=== PATIENT | female | born 1945 | race Asian ===

== ENCOUNTER 2016-08-21 19:26 | Inpatient (IN) | payer MEDICARE, MEDICAID ==
--- NOTE | 2016-08-21 19:29 | ED Physician Chart ---
Chief Complaint/HPI - Patient Information Date Seen:: 08/21/16 Time Seen:: 19:28 Chief Complaint:: knee pain History of Present Illness:: 71-year-old female brought in by ambulance with acute, moderate, nonradiating, right knee pain that happened about 30 minutes prior to arrival to the ER when she tripped while playing basketball and landed on her right knee. Has associated swelling and ecchymosis of the right knee. Historian:: Patient, EMS Review:: Nurse's Note Reviewed, EMS run form Reviewed Review of Systems - Review of Systems Other: Complete system review otherwise unremarkable except as noted in HPI. Past Medical History - Past Medical History Past Medical History: Other (multiple psychiatric issues) Family History: None Social History: Non Smoker, No Alcohol, No Drug Use, Care Facility Surgical History: None Psychiatricy History: Schizophrenia, Other (multiple psychiatric issues) Medication: Reviewed Family Medical History - Family Member Mother History Unknown: Yes Physical Exam - Physical Examination Other:: INITIAL VITAL SIGNS: Reviewed by me GENERAL: Alert and interactive. No acute distress HEAD: Head is normocephalic and atraumatic EYES: EOMI. . No scleral icterus. No conjunctival injection ENT: Moist mucous membranes. NECK: Supple. No masses. Full range of motion RESPIRATORY: No tachypnea. Clear breath sounds bilaterally. No wheezing, rales, or rhonchi CV: Regular rate and rhythm. No murmurs, rubs, or gallops ABDOMEN: Soft, non-distended, non-tender. No guarding. No rebound. No masses. EXTREMITIES: Right knee is edematous and ecchymotic. Range of motion is limited due to pain. SKIN: Warm and dry. No obvious rashes. NEUROLOGIC: Alert and oriented. Face is symmetric. Speech is normal. Moves all extremities equally. Motor and sensory distally intact. Labs/Radiology/EKG Results - Radiology Results Results: X-ray right knee 3 views was interpreted independently and contemporaneously by Mateo Riggs MD: Severely displaced patellar fracture No acute dislocations No soft tissue foreign bodies Overall impression: Severely displaced patellar fracture Assessment Splint Care: Splint applied Post Procedure/Splint Exam: No Active Bleeding, Full Range of Motion, Neuro/ Vascular Exam Comments:: Right knee immobilizer splint placed Splint Assessment: Neurovascularly intact post splint placement with good fit. ED Septic Shock - . Is Septic Shock (SBP<90, OR Lactate>4 mmol\L) present?: No Reassessment (Disposition) - Reassessment Reassessment:: This patient has a severely displaced patellar fracture. She will need pain management and surgery to correct this. We did place knee immobilizer here in the ER. Discussed the case with admitting physician who will admit the patient for further workup and treatment. Reassessment Condition:: Improved - Diagnosis Diagnosis:: Severely displaced right patellar fracture, acute, first visit - Patient Disposition Discharge/Transfer:: Acute Care w[facility]in [facility] Admitting Medical Physician:: Lenny Huaser Time:: 21:13 Condition at Disposition:: Stable ED Discharge Plan - Patient Disposition Admit/Discharge/Transfer: Acute Care w/in [facility]
[2016-08-21] MEDS ORDERED: Polyvinyl Alcohol Ophth Soln 15 mL Bottle EACH EYE PRN (21:31)
[2016-08-21] MEDS ORDERED: Magnesium Hydroxide (MOM) 30 mL UDC PO PRN (21:31)
[2016-08-21 21:33] LABS: % BASOPHILS 0.7 % (0.0-2.0); % EOSINOPHILS 2.5 % (0.0-5.0); % LYMPHOCYTES 21.2 % (20.0-50.0); % MONOCYTES 6.1 % (2.0-10.0); % NEUTROPHILS 69.5 % (40.0-80.0); HEMATOCRIT 34.4 % (35.0-45.0); HEMOGLOBIN 11.6 gm/dL (11.7-16.1); MEAN CELL VOLUME 90.7 fl (81-100); MEAN CORPUSCULAR HEMOGLOBIN 30.6 pg (27.0-31.0); MEAN CORPUSCULAR HGB CONC 33.7 pg (28.0-36.0); MEAN PLATELET VOLUME 9.3 fl; PLATELET COUNT 164 Th/cmm (150-400); RED BLOOD COUNT 3.79 Mil/cmm (3.80-5.20); RED CELL DISTRIBUTION WIDTH 13.4 % (11.5-20.0); WHITE BLOOD COUNT 7.2 Th/cmm (4.8-10.8)
[2016-08-21] MEDS ORDERED: Ipratropium Neb 0.5 mg/2.5 mL UD HHN PRN (21:35)
[2016-08-21] MEDS ORDERED: Albuterol Nebulizer 2.5mg/3mL HHN PRN (21:35)
[2016-08-21 21:39] LABS: PROTHROMBIN TIME (TEST) 8.9 SECONDS (9.5-11.5)
[2016-08-21 21:41] LABS: INR 0.9 (0.5-1.4)
[2016-08-21 21:43] LABS: ALB/GLOB RATIO 1.3 (1.0-1.8); ALKALINE PHOSPHATASE 68 U/L (34-104); ANION GAP 5.6 (7.0-16.0); BILIRUBIN,TOTAL 0.3 mg/dL (0.3-1.0); BUN - UREA NITROGEN 32 mg/dL (7-25); CALCIUM SERUM 9.5 mg/dL (8.6-10.3); CARBON DIOXIDE 29.9 mEq/L (21.0-31.0); CHLORIDE 101 mEq/L (98-107); CREATININE - SERUM 0.8 mg/dL (0.6-1.2); GLUCOSE 263 mg/dL (70-105); POTASSIUM SERUM 4.5 mEq/L (3.5-5.1); SGOT 17 U/L (13-39); SGPT/ALT 15 U/L (7-52); SODIUM SERUM 132 mEq/L (136-145)
[2016-08-22 02:12] VITALS: BP 135/70
[2016-08-22] MEDS: Hydrocodone/APAP 5mg/325mg Tab PO PRN ×3 (04:06→16:38)
[2016-08-22 06:01] LABS: PROTHROMBIN TIME (TEST) 8.9 SECONDS (9.5-11.5)
[2016-08-22 06:06] LABS: INR 0.9 (0.5-1.4)
[2016-08-22 06:38] LABS: % BASOPHILS 0.4 % (0.0-2.0); % EOSINOPHILS 2.8 % (0.0-5.0); % LYMPHOCYTES 16.6 % (20.0-50.0); % MONOCYTES 6.7 % (2.0-10.0); % NEUTROPHILS 73.5 % (40.0-80.0); HEMATOCRIT 34.1 % (35.0-45.0); HEMOGLOBIN 11.7 gm/dL (11.7-16.1); MEAN CELL VOLUME 90.2 fl (81-100); MEAN CORPUSCULAR HEMOGLOBIN 30.8 pg (27.0-31.0); MEAN CORPUSCULAR HGB CONC 34.2 pg (28.0-36.0); NEUTROPHILE ABSOLUTE 5.3 Th/cmm (1.8-8.0); PLATELET COUNT 170 Th/cmm (150-400); RED BLOOD COUNT 3.78 Mil/cmm (3.80-5.20); RED CELL DISTRIBUTION WIDTH 13.6 % (11.5-20.0); WHITE BLOOD COUNT 7.2 Th/cmm (4.8-10.8)
[2016-08-22] MEDS: Levothyroxine 0.075 Mg Tab PO SCH (06:41)
[2016-08-22] MEDS: INSULIN ASPART, RECOMBINANT 100 UNITS/ML SUBQ SCH ×4 (06:44→22:08)
[2016-08-22 06:48] LABS: TSH 1.24 uIU/ml (0.34-5.60)
[2016-08-22] MEDS ORDERED: ZINC PO SCH (09:00)
[2016-08-22] MEDS ORDERED: [UNRECOGNIZED DRUG - OTHER] PO SCH (09:00)
[2016-08-22] MEDS ORDERED: D3 PO SCH (09:00)
[2016-08-22] MEDS ORDERED: MAGNESIUM PO SCH (09:00)
[2016-08-22] MEDS ORDERED: CALCIUM CARB PO SCH (09:00)
--- NOTE | 2016-08-22 09:25 | Diagnostic Imaging Report ---
History: Trauma Findings: There is a subtle fracture through the patella with distraction of patellar fragments. There is soft tissue swelling in the peripatellar soft tissues. Distal femur and proximal tibia and fibular intact. Impression: There is a horizontal fracture through the mid pole of the patella with distraction
[2016-08-22] MEDS: Multivitamin Tab PO SCH (09:26)
[2016-08-22] MEDS: Pantoprazole 40 mg EC Tab PO SCH (09:26)
--- NOTE | 2016-08-22 10:46 | Diagnostic Imaging Report ---
INDICATION: Shortness of breath and chest pain FINDINGS: Heart size is enlarged..Aorta is tortuous.. There are no infiltrates or effusions. There are no bony thoracic abnormalities. Old right rib fracture. IMPRESSION: Cardiomegaly .. No acute cardiopulmonary pathology.
[2016-08-22] MEDS ORDERED: VTE Chemical Prophylaxis Screen/Admission MC PRN (15:00)
--- NOTE | 2016-08-22 17:46 | Internal Medicine Prog Note ---
Internal Medicine Subjective - Subjective Service Date: 08/22/16 ([id number] hn dictated) Internal Medicine Objective - Results Result Diagrams: 08/22/16 06:32 08/21/16 21:22 Recent Labs: Laboratory Last Values WBC 7.2 Th/cmm (4.8-10.8) 08/22/16 06:32 RBC 3.78 Mil/cmm (3.80-5.20) L 08/22/16 06:32 Hgb 11.7 gm/dL (11.7-16.1) 08/22/16 06:32 Hct 34.1 % (35.0-45.0) L 08/22/16 06:32 MCV 90.2 fl (81-100) 08/22/16 06:32 MCH 30.8 pg (27.0-31.0) 08/22/16 06:32 MCHC Differential 34.2 pg (28.0-36.0) 08/22/16 06:32 RDW 13.6 % (11.5-20.0) 08/22/16 06:32 Plt Count 170 Th/cmm (150-400) 08/22/16 06:32 MPV 8.0 fl 08/22/16 06:32 Neutrophils % 73.5 % (40.0-80.0) 08/22/16 06:32 Lymphocytes % 16.6 % (20.0-50.0) L 08/22/16 06:32 Monocytes % 6.7 % (2.0-10.0) 08/22/16 06:32 Eosinophils % 2.8 % (0.0-5.0) 08/22/16 06:32 Basophils % 0.4 % (0.0-2.0) 08/22/16 06:32 PT 8.9 SECONDS (9.5-11.5) L 08/22/16 05:24 INR 0.90 (0.5-1.4) 08/22/16 05:24 PTT (Actin FS) 22.7 SECONDS (26.0-38.0) L 08/22/16 05:24 Sodium 132 mEq/L (136-145) L 08/21/16 21:22 Potassium 4.5 mEq/L (3.5-5.1) 08/21/16 21:22 Chloride 101 mEq/L (98-107) 08/21/16 21:22 Carbon Dioxide 29.9 mEq/L (21.0-31.0) 08/21/16 21:22 Anion Gap 5.6 (7.0-16.0) L 08/21/16 21:22 BUN 32 mg/dL (7-25) H 08/21/16 21:22 Creatinine 0.8 mg/dL (0.6-1.2) 08/21/16 21:22 Est GFR ( Amer) TNP 08/21/16 21:22 Est GFR (Non-Af Amer) TNP 08/21/16 21:22 BUN/Creatinine Ratio 40.0 08/21/16 21:22 Glucose 263 mg/dL (70-105) H 08/21/16 21:22 POC Glucose 200 MG/DL (70 - 105) H 08/22/16 16:31 Hemoglobin A1c % 8.9 % (4.0-6.0) H 08/21/16 21:22 Calcium 9.5 mg/dL (8.6-10.3) 08/21/16 21:22 Total Bilirubin 0.3 mg/dL (0.3-1.0) 08/21/16 21:22 AST 17 U/L (13-39) 08/21/16 21:22 ALT 15 U/L (7-52) 08/21/16 21:22 Alkaline Phosphatase 68 U/L (34-104) 08/21/16 21:22 Ammonia 45 umol/L (16-53) 08/22/16 05:24 Total Protein 6.8 gm/dL (6.0-8.3) 08/21/16 21:22 Albumin 3.9 gm/dL (3.7-5.3) 08/21/16 21:22 Globulin 2.9 gm/dL 08/21/16 21:22 Albumin/Globulin Ratio 1.3 (1.0-1.8) 08/21/16 21:22 TSH 1.24 uIU/ml (0.34-5.60) 08/22/16 05:24 - Physical Exam Vitals and I&O: Vital Signs Temp 98.7 F 08/22/16 16:11 Pulse 76 08/22/16 16:11 Resp 17 08/22/16 16:11 BP 122/68 08/22/16 16:11 Pulse Ox 97 08/22/16 16:11 Active Medications: Current Medications Acetaminophen (Tylenol) 650 mg PO Q4HR PRN PRN Reason: Pain or Fever >101 Stop: 10/20/16 21:30 Acetaminophen/Hydrocodone Bitart ([place] 5mg/325mg) 1 tab PO Q4H PRN PRN Reason: Pain (Severe) Stop: 10/20/16 21:34 Last Admin: 08/22/16 16:38 Dose: 1 tab Albuterol Sulfate (Albuterol 2.5mg/3ml Neb Ud) 2.5 mg HHN Q2HR PRN PRN Reason: Shortness of Breath or Wheeze Stop: 10/20/16 21:34 Atorvastatin Calcium (Lipitor) 10 mg PO HS JODEE PRN Reason: Protocol Stop: 10/21/16 20:59 Bisacodyl (Dulcolax 10 Mg Supp) 10 mg RC DAILY PRN PRN Reason: Constipation Stop: 10/20/16 21:30 Docusate Sodium (Colace) 100 mg PO BID [facility] Stop: 10/21/16 08:59 Last Admin: 08/22/16 16:38 Dose: 100 mg Heparin Sodium (Porcine) (Heparin) 5,000 units SUBQ Q12HR [facility] Stop: 10/21/16 08:59 Last Admin: 08/22/16 09:25 Dose: 5,000 units Heparin Sodium (Porcine) (Heparin) 5,000 units SUBQ Q12HR [facility] Stop: 10/21/16 20:59 Insulin Aspart (Novolog) 0 units SUBQ ACHS JODEE PRN Reason: Protocol Stop: 10/21/16 07:29 Last Admin: 08/22/16 16:38 Dose: 2 units Ipratropium [place] (Atrovent Neb 0.5mg/2.5ml) 0.5 mg HHN Q2HR PRN PRN Reason: Shortness of Breath or Wheeze Stop: 10/20/16 21:34 Levothyroxine Sodium (Synthroid) 0.075 mg PO QDAC [facility] Stop: 10/21/16 07:29 Last Admin: 08/22/16 06:41 Dose: 0.075 mg Lisinopril (Zestril) 5 mg PO DAILY [facility] Stop: 10/21/16 08:59 Last Admin: 08/22/16 09:25 Dose: 5 mg Magnesium Hydroxide (Milk Of Magnesia) 30 ml PO HS PRN PRN Reason: Constipation Stop: 10/20/16 21:30 Miscellaneous (Dextran 70/Hypromellose [Artificial Tears]) 1 each EACH EAR Q4HR PRN PRN Reason: Dry Eye Miscellaneous (Vte Chemical Prophylaxis Screen/ Admission) 1 ea [facility] PRN PRN PRN Reason: PROTOCOL Stop: 10/21/16 14:59 Multivitamins/Vitamin C (Theragran) 1 tab PO DAILY JODEE Stop: 10/21/16 08:59 Last Admin: 08/22/16 09:26 Dose: 1 tab Ondansetron HCl (Zofran) 4 mg IV Q8H PRN PRN Reason: Nausea / Vomiting Stop: 10/20/16 21:34 Pantoprazole Sodium (Protonix) 40 mg PO DAILY JODEE Stop: 10/21/16 08:59 Last Admin: 08/22/16 09:26 Dose: 40 mg Risperidone (Risperdal) 1 mg PO HS JODEE PRN Reason: Protocol Stop: 10/21/16 20:59 Senna (Senna) 8.6 mg PO DAILY JODEE Stop: 10/21/16 08:59 Last Admin: 08/22/16 09:27 Dose: 8.6 mg Sertraline HCl (Zoloft) 25 mg PO DAILY JODEE PRN Reason: Protocol Stop: 10/21/16 08:59 Last Admin: 08/22/16 09:27 Dose: 25 mg Trihexyphenidyl HCl (Artane) 1 mg PO BID JODEE Stop: 10/21/16 08:59 Last Admin: 08/22/16 16:38 Dose: 1 mg Zolpidem Tartrate (Ambien) 10 mg PO HS PRN PRN Reason: Insomnia Stop: 10/20/16 21:34 Internal Medicine Assmt/Plan - Assessment Assessment: RIGHT PATELLA FRACTURE DM-2 GERD HYPOTHYROIDISM HTN SCHIZOAFFECTIVE ANXIETY
--- NOTE | 2016-08-22 20:11 | History & Physical ---
CHIEF COMPLAINT: Knee pain. HISTORY OF PRESENT ILLNESS: This is a 71-year-old female who is a resident of [facility], who is brought here to [facility] for status post fall. The patient states that she was playing basketball and she landed on her right knee and her right knee started to swell up and developed a bruise. For this reason the patient is now admitted. PAST MEDICAL HISTORY: Type 2 diabetes, muscle weakness, GERD, hypothyroidism, hypertension, dysphagia, anxiety, schizoaffective major depressive disorder. FAMILY HISTORY: Noncontributory. SOCIAL HISTORY: The patient resides at [facility] requiring 24-hour nursing care. SURGICAL HISTORY: None per patient. MEDICATIONS: Please see medication reconciliation sheet. REVIEW OF SYSTEMS: GENERAL: Denies any fever, any chills. CARDIOVASCULAR: Denies any chest pain. RESPIRATORY: Denies any shortness of breath. GASTROINTESTINAL: Denies any nausea, vomiting, abdominal pain. GENITOURINARY: Denies any dysuria. All other systems are reviewed by me and are negative. PHYSICAL EXAMINATION: GENERAL: The patient is well developed, well nourished, no acute distress. VITAL SIGNS: Temperature 98.7, heart rate 76, blood pressure 122/68, respirations 18, O2 97%. HEENT: Head normocephalic, atraumatic. NECK: Supple. No mass. LUNGS: Clear bilaterally upon auscultation. HEART: Regular rhythm, no murmurs or gallops. SKIN: ____. ABDOMEN: Soft, nontender, nondistended. Positive bowel sounds in all 4 quadrants. LABORATORY DATA: WBC 7.2, H and H 11.7 and ____. Sodium 132, potassium 4.5, BUN 32, creatinine 0.8. Hemoglobin A1c is 8.9. DIAGNOSTICS: The patient had a chest x-ray done and the impression is cardiomegaly, no acute cardiopulmonary pathology. The patient also had a knee x-ray and the impression is, there is a horizontal fracture ____ mid pole of the patella with distraction. ASSESSMENT: Right patella fracture, type 2 diabetes, gastroesophageal reflux disease, hypothyroidism, hypertension, dysphagia, anxiety, schizoaffective disorder. PLAN: The patient to be admitted to the Med/Surg Unit. The patient will have a consultation with Dr. La and also Dr. Salamanca. Fall precautions will be initiated. Pain management. The patient will be kept on a DVT prophylaxis on heparin. We will continue to monitor the patient. [facility]# [id number]
[2016-08-22] MEDS: Atorvastatin Calcium 10 MG TAB PO SCH (21:10)
[2016-08-23 06:00] LABS: % BASOPHILS 0.9 % (0.0-2.0); % EOSINOPHILS 3.1 % (0.0-5.0); % LYMPHOCYTES 21.1 % (20.0-50.0); % MONOCYTES 6.7 % (2.0-10.0); % NEUTROPHILS 68.2 % (40.0-80.0); HEMATOCRIT 34.4 % (35.0-45.0); HEMOGLOBIN 11.7 gm/dL (11.7-16.1); MEAN CELL VOLUME 89.7 fl (81-100); MEAN CORPUSCULAR HEMOGLOBIN 30.6 pg (27.0-31.0); MEAN CORPUSCULAR HGB CONC 34.1 pg (28.0-36.0); MEAN PLATELET VOLUME 9.3 fl; NEUTROPHILE ABSOLUTE 4.9 Th/cmm (1.8-8.0); PLATELET COUNT 152 Th/cmm (150-400); RED BLOOD COUNT 3.84 Mil/cmm (3.80-5.20); RED CELL DISTRIBUTION WIDTH 13.5 % (11.5-20.0); WHITE BLOOD COUNT 7.2 Th/cmm (4.8-10.8)
[2016-08-23 06:16] LABS: BUN - UREA NITROGEN 30 mg/dL (7-25); BUN/CREATININE RATIO 33.3; CALCIUM SERUM 9.3 mg/dL (8.6-10.3); CARBON DIOXIDE 28.3 mEq/L (21.0-31.0); CHLORIDE 101 mEq/L (98-107); CREATININE - SERUM 0.9 mg/dL (0.6-1.2); GLUCOSE 254 mg/dL (70-105); POTASSIUM SERUM 4.3 mEq/L (3.5-5.1); SODIUM SERUM 133 mEq/L (136-145)
[2016-08-23] MEDS: Levothyroxine 0.075 Mg Tab PO SCH (06:31)
[2016-08-23] MEDS: INSULIN ASPART, RECOMBINANT 100 UNITS/ML SUBQ SCH ×4 (06:31→23:13)
--- NOTE | 2016-08-23 06:33 | Admit Criteria Form ---
Admit Criteria Forms - Admit Criteria Diagnosis: MUSCULOSKELETAL DISEASE [facility] Clinical Indications for Admission to Inpatient Care (Place 'X' for any and all applicable criteria): Hospital admission is needed for appropriate care of the patient because of ANY ONE of the following: [X]I. Fracture, dislocation, or other musculoskeletal injury requiring inpatient care(medical) as indicated by ANY ONE of the following(4)(5)(6)(7) [ ]a) Vertebral fracture requiring observation for instability or neurologic compromise (8) [ ]b) Compartment syndrome (proven or cannot be ruled out during observation level of care) (9) [ ]c) Limb-threatening injury [ ]d) Major injury requiring inpatient stabilization such as traction initiation or external fixation before internal fixation or closure of complex or open fracture [X]e) Major injury requiring inpatient treatment after emergency or observation level care (as appropriate) [ ]f) Severe pain requiring acute inpatient management [ ]II. Newly diagnosed or suspected bone, joint, or orthopedic device infection (e.g., osteomyelitis, septic arthritis) needing ANY ONE of the following(1)(2)(3) [ ]a) IV antibiotics that cannot be initiated in other than inpatient setting (e.g., patient too unstable or home infusion not available) [ ]b) Device removal or replacement [ ]c) Bone or soft tissue debridement [ ]d) Joint drainage (drain placement or repetitive aspirations) [ ]III. Severe rheumatologic disease (e.g., systemic lupus erythematosus, rheumatoid arthritis) with complications or comorbidities (Also use Optimal Recovery Care Criteria or General Recovery Criteria as appropriate on the basis of predominant condition), including ANY ONE of the following(10 )(11)(12)(13) [ ]a) Severe infection (e.g., BOARD WINDER infection, sepsis) (14) [ ]b) Respiratory complications, including ANY ONE of the following: [ ]i) Pleural effusion with respiratory compromise [ ]ii) Pulmonary hypertension with congestive failure [ ]iii) Respiratory failure [ ]iv) Pulmonary hemorrhage (15) [ ]c) Hematologic disease, including ANY ONE of the following: [ ]i) Coagulopathy with bleeding [ ]ii) Thrombosis with hypercoagulable state [ ]iii) Thrombotic thrombocytopenic purpura [ ]d) Cerebritis with seizures, psychosis, or other severe abnormalities [ ]e) Vertebral destruction with monitoring needed for cervical myelopathy& possible respiratory compromise [ ]f) Exacerbation that requires inpatient treatment (e.g., intravenous immunosuppression) (16) [ ]g) Acute renal failure [ ]IV. Severe vasculitis with complications or comorbidities (Also use Optimal Recovery Care Criteria or General Recovery Criteria as appropriate on the basis of predominant condition), including ANY ONE of the following(11)(12)(17)(18)(19)(20) [ ]a) BOARD WINDER vasculitis with seizures, psychosis, or other severe abnormalities (22) [ ]b) Renal failure (16) [ ]c) Pulmonary hemorrhage (15) [ ]d) Cerebral infarction [ ]e) Gastrointestinal ischemia [ ]f) Gangrene or threatened amputation [ ]g) Exacerbation that requires inpatient treatment (e.g., intravenous immunosuppression) (19)(21) [ ]V. Severe myopathy as indicated by ANY ONE of the following (28)(29) [ ]a) New onset of airway compromise or inability to swallow [ ]b) Respiratory deterioration with observation needed for impending respiratory failure [ ]c) Exacerbation that requires inpatient treatment (e.g., intravenous immunosuppression) [ ]. Severe gout (crystal arthropathy) as indicated by ANY ONE of the following (23)(24) [ ]a) Severe pain requiring acute inpatient management [ ]b) Exacerbation that requires inpatient treatment (e.g., intravenous treatment) [ ]VII.Rhabdomyolysis and ANY ONE of the following (25)(26)(27) [ ]a) Acute renal failure [ ]b) Need for intravenous hydration after emergency or observation level care (as appropriate) [ ]c) Inability to maintain oral hydration [ ]d) Change in mental status [ ]e) Electrolyte abnormality that remains after emergency or observation level care (as appropriate) [ ]VIII Post amputation complication, as indicated by ANY ONE of the following [ ]a) Infection [ ]b) Dehiscence [ ]c) Myodesis failure [ ]IX. Severe pain requiring acute inpatient management as indicated by ALL of the following (30)(31)(32) [ ]a) Continuous or frequent (e.g., every 2 to 4 hrs) parenteral analgesics required [A] [ ]b) Rapid improvement expected from treatment or acute intervention ( e.g., surgery, anesthesia procedure[B] [ ]X. Musculoskeletal Disease and ALL of the following: [ ]a) Symptom or finding for which emergency and observation care have failed or are not considered appropriate (Use General Criteria: Observation Care as appropriate) [ ]b) Presence of ANY ONE of the following [ ]i) A General Admission Criteria [ ]ii) A Pediatric General Admission Criteria The original [facility] content created by [facility] has been revised. The portions of the content which have been revised are identified through the use of italic text or in bold, and [facility] has neither reviewed nor approved the modified material. All other unmodified content is copyright [facility]. Please see references footnoted in the original [facility] edition 2016 Admit Criteria Met?: Yes
[2016-08-23] MEDS: Pantoprazole 40 mg EC Tab PO SCH (09:36)
[2016-08-23] MEDS: Hydrocodone/APAP 5mg/325mg Tab PO PRN (09:36)
[2016-08-23] MEDS: Multivitamin Tab PO SCH (09:38)
--- NOTE | 2016-08-23 12:02 | Internal Medicine Prog Note ---
Internal Medicine Subjective - Subjective Service Date: 08/23/16 Patient seen and examined:: with staff Patient is:: awake Patient Complaints of:: congestion Per staff patient is:: no adverse event Internal Medicine Objective - Results Result Diagrams: 08/23/16 05:35 08/23/16 05:35 Recent Labs: Laboratory Last Values WBC 7.2 Th/cmm (4.8-10.8) 08/23/16 05:35 RBC 3.84 Mil/cmm (3.80-5.20) 08/23/16 05:35 Hgb 11.7 gm/dL (11.7-16.1) 08/23/16 05:35 Hct 34.4 % (35.0-45.0) L 08/23/16 05:35 MCV 89.7 fl (81-100) 08/23/16 05:35 MCH 30.6 pg (27.0-31.0) 08/23/16 05:35 MCHC Differential 34.1 pg (28.0-36.0) 08/23/16 05:35 RDW 13.5 % (11.5-20.0) 08/23/16 05:35 Plt Count 152 Th/cmm (150-400) 08/23/16 05:35 MPV 9.3 fl 08/23/16 05:35 Neutrophils % 68.2 % (40.0-80.0) 08/23/16 05:35 Lymphocytes % 21.1 % (20.0-50.0) 08/23/16 05:35 Monocytes % 6.7 % (2.0-10.0) 08/23/16 05:35 Eosinophils % 3.1 % (0.0-5.0) 08/23/16 05:35 Basophils % 0.9 % (0.0-2.0) 08/23/16 05:35 PT 8.9 SECONDS (9.5-11.5) L 08/22/16 05:24 INR 0.90 (0.5-1.4) 08/22/16 05:24 PTT (Actin FS) 22.7 SECONDS (26.0-38.0) L 08/22/16 05:24 Sodium 133 mEq/L (136-145) L 08/23/16 05:35 Potassium 4.3 mEq/L (3.5-5.1) 08/23/16 05:35 Chloride 101 mEq/L (98-107) 08/23/16 05:35 Carbon Dioxide 28.3 mEq/L (21.0-31.0) 08/23/16 05:35 Anion Gap 8.0 (7.0-16.0) 08/23/16 05:35 BUN 30 mg/dL (7-25) H 08/23/16 05:35 Creatinine 0.9 mg/dL (0.6-1.2) 08/23/16 05:35 Est GFR ( Amer) [place] 08/23/16 05:35 Est GFR (Non-Af Amer) [facility] 08/23/16 05:35 BUN/Creatinine Ratio 33.3 08/23/16 05:35 Glucose 254 mg/dL (70-105) H 08/23/16 05:35 POC Glucose 269 MG/DL (70 - 105) H 08/23/16 06:14 Hemoglobin A1c % 8.9 % (4.0-6.0) H 08/21/16 21:22 Calcium 9.3 mg/dL (8.6-10.3) 08/23/16 05:35 Total Bilirubin 0.3 mg/dL (0.3-1.0) 08/21/16 21:22 AST 17 U/L (13-39) 08/21/16 21:22 ALT 15 U/L (7-52) 08/21/16 21:22 Alkaline Phosphatase 68 U/L (34-104) 08/21/16 21:22 Ammonia 45 umol/L (16-53) 08/22/16 05:24 Total Protein 6.8 gm/dL (6.0-8.3) 08/21/16 21:22 Albumin 3.9 gm/dL (3.7-5.3) 08/21/16 21:22 Globulin 2.9 gm/dL 08/21/16 21:22 Albumin/Globulin Ratio 1.3 (1.0-1.8) 08/21/16 21:22 TSH 1.24 uIU/ml (0.34-5.60) 08/22/16 05:24 - Physical Exam Vitals and I&O: Vital Signs Temp 98.2 F 08/23/16 08:00 Pulse 79 08/23/16 09:37 Resp 20 08/23/16 08:00 BP 128/75 08/23/16 09:37 Pulse Ox 96 08/23/16 08:00 Intake & Output 08/22/16 08/23/16 08/23/16 18:59 06:59 18:59 Intake Total 1800 Output Total 0 Balance 1800 Intake: Oral 1800 Output: Stool 0 Other: # Voids 3 Active Medications: Current Medications Acetaminophen (Tylenol) 650 mg PO Q4HR PRN PRN Reason: Pain or Fever >101 Stop: 10/20/16 21:30 Acetaminophen/Hydrocodone Bitart ([place] 5mg/325mg) 1 tab PO Q4H PRN PRN Reason: Pain (Severe) Stop: 10/20/16 21:34 Last Admin: 08/23/16 09:36 Dose: 1 tab Albuterol Sulfate (Albuterol 2.5mg/3ml Neb Ud) 2.5 mg HHN Q2HR PRN PRN Reason: Shortness of Breath or Wheeze Stop: 10/20/16 21:34 Artificial Tears (Artificial Tears Ophth Soln) 1 drop EACH EYE Q4HR PRN PRN Reason: Dry Eye Atorvastatin Calcium (Lipitor) 10 mg PO HS JODEE PRN Reason: Protocol Stop: 10/21/16 20:59 Last Admin: 08/22/16 21:10 Dose: 10 mg Bisacodyl (Dulcolax 10 Mg Supp) 10 mg RC DAILY PRN PRN Reason: Constipation Stop: 10/20/16 21:30 Docusate Sodium (Colace) 100 mg PO BID JODEE Stop: 10/21/16 08:59 Last Admin: 08/23/16 09:36 Dose: 100 mg Heparin Sodium (Porcine) (Heparin) 5,000 units SUBQ Q12HR [facility]E Stop: 10/21/16 08:59 Last Admin: 08/23/16 09:37 Dose: 5,000 units Heparin Sodium (Porcine) (Heparin) 5,000 units SUBQ Q12HR [facility] Stop: 10/21/16 20:59 Insulin Aspart (Novolog) 0 units SUBQ ACHS JODEE PRN Reason: Protocol Stop: 10/21/16 07:29 Last Admin: 08/23/16 11:30 Dose: 8 units Ipratropium [place] (Atrovent Neb 0.5mg/2.5ml) 0.5 mg HHN Q2HR PRN PRN Reason: Shortness of Breath or Wheeze Stop: 10/20/16 21:34 Levothyroxine Sodium (Synthroid) 0.075 mg PO QDAC JODEE Stop: 10/21/16 07:29 Last Admin: 08/23/16 06:31 Dose: 0.075 mg Lisinopril (Zestril) 5 mg PO DAILY JODEE Stop: 10/21/16 08:59 Last Admin: 08/23/16 09:37 Dose: 5 mg Magnesium Hydroxide (Milk Of Magnesia) 30 ml PO HS PRN PRN Reason: Constipation Stop: 10/20/16 21:30 Miscellaneous (Vte Chemical Prophylaxis Screen/ Admission) 1 ea [facility] PRN PRN PRN Reason: PROTOCOL Stop: 10/21/16 14:59 Multivitamins/Vitamin C (Theragran) 1 tab PO DAILY JODEE Stop: 10/21/16 08:59 Last Admin: 08/23/16 09:38 Dose: 1 tab Ondansetron HCl (Zofran) 4 mg IV Q8H PRN PRN Reason: Nausea / Vomiting Stop: 10/20/16 21:34 Pantoprazole Sodium (Protonix) 40 mg PO DAILY JODEE Stop: 10/21/16 08:59 Last Admin: 08/23/16 09:36 Dose: 40 mg Risperidone (Risperdal) 1 mg PO HS JODEE PRN Reason: Protocol Stop: 10/21/16 20:59 Last Admin: 08/22/16 21:10 Dose: 1 mg Senna (Senna) 8.6 mg PO DAILY JODEE Stop: 10/21/16 08:59 Last Admin: 08/23/16 09:37 Dose: 8.6 mg Sertraline HCl (Zoloft) 25 mg PO DAILY JODEE PRN Reason: Protocol Stop: 10/21/16 08:59 Last Admin: 08/23/16 09:37 Dose: 25 mg Trihexyphenidyl HCl (Artane) 1 mg PO BID JODEE Stop: 10/21/16 08:59 Last Admin: 08/23/16 09:38 Dose: 1 mg Zolpidem Tartrate (Ambien) 10 mg PO HS PRN PRN Reason: Insomnia Stop: 10/20/16 21:34 General: alert HEENT: NC/AT, PERRLA Neck: Supple Lungs: CTAB Cardiovascular: RRR, Normal S1, without murmur Abdomen: soft non-tender, non-distended Extremities: clear Internal Medicine Assmt/Plan - Assessment Assessment: RIGHT PATELLA FRACTURE DM-2 GERD HYPOTHYROIDISM HTN SCHIZOAFFECTIVE ANXIETY - Plan Plan: ORIF TOMORROW PAIN MGMT FALL PRECAUTIONS CBC/BMP IN AM
[2016-08-23] MEDS: Atorvastatin Calcium 10 MG TAB PO SCH (20:03)
--- NOTE | 2016-08-24 02:35 | Consultation ---
The patient was seen, chart reviewed, discussed with staff. HISTORY OF PRESENT ILLNESS: The patient is a 71-year-old -[place] female with a history of schizoaffective disorder, was sent from her snf facility, might need surgery on her knee. The patient admits to hearing voices, but she said she has done well. She has been hearing voices for a long time. The patient reports occasional anxiety and depression. The patient has been cooperative, taking her medications and reports fair sleep. The patient said the pain is a little better today and control on the pain helped with her anxiety. PAST PSYCHIATRIC HISTORY: Prior hospitalizations, history of schizoaffective disorder. PAST MEDICAL HISTORY: Refer to H and P. PSYCHOSOCIAL HISTORY: The patient resides at [facility], and she requires complete care. MENTAL STATUS EXAMINATION: The patient is cooperative, makes fair eye contact. Speech is monotonous patient admits to having occasional auditory hallucinations. Affect is slightly restricted. Thought process is concrete. The patient is alert, awake, oriented x 3. ASSESSMENT: Schizoaffective disorder. PLAN: We will continue the Zoloft 25 mg daily, risperidone 1 mg p.o. at bedtime. Continue to monitor closely. We will follow the patient while in the hospital. Thank you for the consultation. [facility]# [id number]
[2016-08-24 05:57] LABS: % BASOPHILS 0.9 % (0.0-2.0); % EOSINOPHILS 3.5 % (0.0-5.0); % LYMPHOCYTES 24.6 % (20.0-50.0); % MONOCYTES 7.9 % (2.0-10.0); % NEUTROPHILS 63.1 % (40.0-80.0); HEMATOCRIT 34.5 % (35.0-45.0); MEAN CELL VOLUME 89.6 fl (81-100); MEAN CORPUSCULAR HEMOGLOBIN 31.1 pg (27.0-31.0); MEAN CORPUSCULAR HGB CONC 34.7 pg (28.0-36.0); MEAN PLATELET VOLUME 9.8 fl; PLATELET COUNT 156 Th/cmm (150-400); RED BLOOD COUNT 3.85 Mil/cmm (3.80-5.20); RED CELL DISTRIBUTION WIDTH 13.3 % (11.5-20.0); WHITE BLOOD COUNT 6.3 Th/cmm (4.8-10.8)
[2016-08-24 06:04] LABS: PROTHROMBIN TIME (TEST) 8.9 SECONDS (9.5-11.5)
[2016-08-24 06:10] LABS: BUN - UREA NITROGEN 32 mg/dL (7-25); BUN/CREATININE RATIO 35.6; CALCIUM SERUM 9.6 mg/dL (8.6-10.3); CARBON DIOXIDE 30.5 mEq/L (21.0-31.0); CHLORIDE 100 mEq/L (98-107); CREATININE - SERUM 0.9 mg/dL (0.6-1.2); GLUCOSE 280 mg/dL (70-105); POTASSIUM SERUM 4.5 mEq/L (3.5-5.1); SODIUM SERUM 134 mEq/L (136-145)
[2016-08-24 06:11] LABS: FOLIC ACID 17.4 ng/mL (>3.0)
[2016-08-24 06:18] LABS: URINE BILIRUBIN NEGATIVE (NEGATIVE); URINE BLOOD NEGATIVE (NEGATIVE); URINE COLOR YELLOW; URINE GLUCOSE (UA) 100 mg/dL (NEGATIVE); URINE KETONE NEGATIVE (NEGATIVE); URINE PROTEIN NEGATIVE (NEGATIVE); URINE UROBILINOGEN 0.2 E.U./dL (0.2 - 1.0)
[2016-08-24 06:19] LABS: URINE BACTERIA NONE SEEN /hpf (NONE SEEN); URINE EPITHELIAL CELLS NONE SEEN /lpf (FEW); URINE RBC NONE SEEN /hpf (0-5); URINE WBC NONE SEEN /hpf (0-5)
[2016-08-24 06:34] LABS: INR 0.9 (0.5-1.4)
[2016-08-24] MEDS: INSULIN ASPART, RECOMBINANT 100 UNITS/ML SUBQ SCH ×4 (06:50→21:14)
[2016-08-24] MEDS ORDERED: Bupivacaine 0.5% W/Ep 10 mL Vial INJ ONE (07:10)
[2016-08-24] MEDS ORDERED: Meperidine 25 mg/mL 1mL Syr IVP PRN (09:26)
[2016-08-24] MEDS ORDERED: Lactated Ringer 1,000 ML IV SCH (09:30)
[2016-08-24] MEDS: Levothyroxine 0.075 Mg Tab PO SCH (10:15)
[2016-08-24] MEDS: Multivitamin Tab PO SCH (10:18)
[2016-08-24] MEDS: Pantoprazole 40 mg EC Tab PO SCH (10:18)
--- NOTE | 2016-08-24 11:44 | Diagnostic Imaging Report ---
Right knee 2 views Indication: Patellar fracture Comparison: Right knee x-rays on 08/21/2016 Findings: There is evidence of nail and cerclage wire fixation of markedly comminuted, displaced previous patellar fracture. Overlying subcutaneous staple is seen. Impression: Interval fracture fixation of the patella with associated postsurgical changes.
--- NOTE | 2016-08-24 12:09 | Internal Medicine Prog Note ---
Internal Medicine Subjective - Subjective Service Date: 08/24/16 (s/p orif) Patient seen and examined:: with staff Patient is:: awake Internal Medicine Objective - Results Result Diagrams: 08/24/16 05:16 08/24/16 05:16 Recent Labs: Laboratory Last Values WBC 6.3 Th/cmm (4.8-10.8) 08/24/16 05:16 RBC 3.85 Mil/cmm (3.80-5.20) 08/24/16 05:16 Hgb 12.0 gm/dL (11.7-16.1) 08/24/16 05:16 Hct 34.5 % (35.0-45.0) L 08/24/16 05:16 MCV 89.6 fl (81-100) 08/24/16 05:16 MCH 31.1 pg (27.0-31.0) H 08/24/16 05:16 MCHC Differential 34.7 pg (28.0-36.0) 08/24/16 05:16 RDW 13.3 % (11.5-20.0) 08/24/16 05:16 Plt Count 156 Th/cmm (150-400) 08/24/16 05:16 MPV 9.8 fl 08/24/16 05:16 Neutrophils % 63.1 % (40.0-80.0) 08/24/16 05:16 Lymphocytes % 24.6 % (20.0-50.0) 08/24/16 05:16 Monocytes % 7.9 % (2.0-10.0) 08/24/16 05:16 Eosinophils % 3.5 % (0.0-5.0) 08/24/16 05:16 Basophils % 0.9 % (0.0-2.0) 08/24/16 05:16 PT 8.9 SECONDS (9.5-11.5) L 08/24/16 05:16 INR 0.90 (0.5-1.4) 08/24/16 05:16 PTT (Actin FS) 22.7 SECONDS (26.0-38.0) L 08/22/16 05:24 Sodium 134 mEq/L (136-145) L 08/24/16 05:16 Potassium 4.5 mEq/L (3.5-5.1) 08/24/16 05:16 Chloride 100 mEq/L (98-107) 08/24/16 05:16 Carbon Dioxide 30.5 mEq/L (21.0-31.0) 08/24/16 05:16 Anion Gap 8.0 (7.0-16.0) 08/24/16 05:16 BUN 32 mg/dL (7-25) H 08/24/16 05:16 Creatinine 0.9 mg/dL (0.6-1.2) 08/24/16 05:16 Est GFR ( Amer) [place] 08/24/16 05:16 Est GFR (Non-Af Amer) [facility] 08/24/16 05:16 BUN/Creatinine Ratio 35.6 08/24/16 05:16 Glucose 280 mg/dL (70-105) H 08/24/16 05:16 POC Glucose 259 MG/DL (70 - 105) H 08/24/16 09:57 Hemoglobin A1c % 8.9 % (4.0-6.0) H 08/21/16 21:22 Calcium 9.6 mg/dL (8.6-10.3) 08/24/16 05:16 Total Bilirubin 0.3 mg/dL (0.3-1.0) 08/21/16 21:22 AST 17 U/L (13-39) 08/21/16 21:22 ALT 15 U/L (7-52) 08/21/16 21:22 Alkaline Phosphatase 68 U/L (34-104) 08/21/16 21:22 Ammonia 45 umol/L (16-53) 08/22/16 05:24 Total Protein 6.8 gm/dL (6.0-8.3) 08/21/16 21:22 Albumin 3.9 gm/dL (3.7-5.3) 08/21/16 21:22 Globulin 2.9 gm/dL 08/21/16 21:22 Albumin/Globulin Ratio 1.3 (1.0-1.8) 08/21/16 21:22 Vitamin B12 607 pg/mL (211-946) 08/22/16 05:24 Folic Acid 17.4 ng/mL (>3.0) 08/22/16 05:24 TSH 1.24 uIU/ml (0.34-5.60) 08/22/16 05:24 Urine Source CLEAN C 08/22/16 03:50 Urine Color YELLOW 08/22/16 03:50 Urine Clarity CLEAR (CLEAR) 08/22/16 03:50 Urine pH 7.0 08/22/16 03:50 Ur Specific [place] 1.015 (1.005-1.030) 08/22/16 03:50 Urine Protein NEGATIVE mg/dL (NEGATIVE) 08/22/16 03:50 Urine Glucose (UA) 100 mg/dL (NEGATIVE) H 08/22/16 03:50 Urine Ketones NEGATIVE mg/dL (NEGATIVE) 08/22/16 03:50 Urine Blood NEGATIVE (NEGATIVE) 08/22/16 03:50 Urine Nitrate NEGATIVE (NEGATIVE) 08/22/16 03:50 Urine Bilirubin NEGATIVE (NEGATIVE) 08/22/16 03:50 Urine Urobilinogen 0.2 E.U./dL (0.2 - 1.0) 08/22/16 03:50 Ur Leukocyte Esterase NEGATIVE (NEGATIVE) 08/22/16 03:50 Urine RBC NONE SEEN /hpf (0-5) 08/22/16 03:50 Urine WBC NONE SEEN /hpf (0-5) 08/22/16 03:50 Ur Epithelial Cells NONE SEEN /lpf (FEW) 08/22/16 03:50 Urine Bacteria NONE SEEN /hpf (NONE SEEN) 08/22/16 03:50 - Physical Exam Vitals and I&O: Vital Signs Temp 99.0 F 08/24/16 03:54 Pulse 76 08/24/16 10:16 Resp 18 08/24/16 07:03 BP 125/70 08/24/16 10:16 Pulse Ox 93 08/24/16 07:02 Intake & Output 08/23/16 08/24/16 08/24/16 18:59 06:59 18:59 Intake Total 100 Balance 100 Intake: Oral 100 Other: # Voids 2 Active Medications: Current Medications Acetaminophen (Tylenol) 650 mg PO Q4HR PRN PRN Reason: Pain or Fever >101 Stop: 10/20/16 21:30 Acetaminophen/Hydrocodone Bitart ([place] 5mg/325mg) 1 tab PO Q4H PRN PRN Reason: Pain (Severe) Stop: 10/20/16 21:34 Last Admin: 08/23/16 09:36 Dose: 1 tab Albuterol Sulfate (Albuterol 2.5mg/3ml Neb Ud) 2.5 mg HHN Q2HR PRN PRN Reason: Shortness of Breath or Wheeze Stop: 10/20/16 21:34 Artificial Tears (Artificial Tears Ophth Soln) 1 drop EACH EYE Q4HR PRN PRN Reason: Dry Eye Atorvastatin Calcium (Lipitor) 10 mg PO HS JODEE PRN Reason: Protocol Stop: 10/21/16 20:59 Last Admin: 08/23/16 20:03 Dose: 10 mg Bisacodyl (Dulcolax 10 Mg Supp) 10 mg RC DAILY PRN PRN Reason: Constipation Stop: 10/20/16 21:30 Docusate Sodium (Colace) 100 mg PO BID [facility] Stop: 10/21/16 08:59 Last Admin: 08/24/16 10:16 Dose: Not Given Heparin Sodium (Porcine) (Heparin) 5,000 units SUBQ Q12HR [facility] Stop: 10/21/16 08:59 Last Admin: 08/23/16 09:37 Dose: 5,000 units Heparin Sodium (Porcine) (Heparin) 5,000 units SUBQ Q12HR [facility] Stop: 10/21/16 20:59 Last Admin: 08/24/16 10:14 Dose: Not Given Lactated Ringer's (Lactated Ringer) 1,000 mls @ 0 mls/hr IV .Q0M JODEE PRN Reason: TKO Stop: 08/24/16 13:00 Insulin Aspart (Novolog) 0 units SUBQ ACHS [facility] PRN Reason: Protocol Stop: 10/21/16 07:29 Last Admin: 08/24/16 06:50 Dose: Not Given Ipratropium [place] (Atrovent Neb 0.5mg/2.5ml) 0.5 mg HHN Q2HR PRN PRN Reason: Shortness of Breath or Wheeze Stop: 10/20/16 21:34 Levothyroxine Sodium (Synthroid) 0.075 mg PO QDAC [facility] Stop: 10/21/16 07:29 Last Admin: 08/24/16 10:15 Dose: Not Given Lisinopril (Zestril) 5 mg PO DAILY [facility] Stop: 10/21/16 08:59 Last Admin: 08/24/16 10:16 Dose: Not Given Magnesium Hydroxide (Milk Of Magnesia) 30 ml PO HS PRN PRN Reason: Constipation Stop: 10/20/16 21:30 Meperidine HCl (Demerol) 25 mg IVP UD PRN PRN Reason: POST-OP PAIN Stop: 08/24/16 13:00 Miscellaneous (Vte Chemical Prophylaxis Screen/ Admission) 1 ea [facility] PRN PRN PRN Reason: PROTOCOL Stop: 10/21/16 14:59 Multivitamins/Vitamin C (Theragran) 1 tab PO DAILY JODEE Stop: 10/21/16 08:59 Last Admin: 08/24/16 10:18 Dose: Not Given Ondansetron HCl (Zofran) 4 mg IV Q8H PRN PRN Reason: Nausea / Vomiting Stop: 10/20/16 21:34 Ondansetron HCl (Zofran) 4 mg IV UD PRN PRN Reason: Nausea / Vomiting Stop: 08/24/16 13:00 Pantoprazole Sodium (Protonix) 40 mg PO DAILY JODEE Stop: 10/21/16 08:59 Last Admin: 08/24/16 10:18 Dose: Not Given Risperidone (Risperdal) 1 mg PO HS JODEE PRN Reason: Protocol Stop: 10/21/16 20:59 Last Admin: 08/23/16 20:03 Dose: 1 mg Senna (Senna) 8.6 mg PO DAILY JODEE Stop: 10/21/16 08:59 Last Admin: 08/24/16 10:18 Dose: Not Given Sertraline HCl (Zoloft) 25 mg PO DAILY JODEE PRN Reason: Protocol Stop: 10/21/16 08:59 Last Admin: 08/24/16 10:18 Dose: Not Given Trihexyphenidyl HCl (Artane) 1 mg PO BID JODEE Stop: 10/21/16 08:59 Last Admin: 08/24/16 10:19 Dose: Not Given Zolpidem Tartrate (Ambien) 10 mg PO HS PRN PRN Reason: Insomnia Stop: 10/20/16 21:34 General: alert, other (confused) HEENT: NC/AT, PERRLA Neck: Supple Lungs: CTAB Cardiovascular: RRR, Normal S1, Normal S2, without murmur Abdomen: soft non-tender, non-distended, positive bowel sound Extremities: clear Neurological: no change Internal Medicine Assmt/Plan - Assessment Assessment: RIGHT PATELLA FRACTURE, s/p orif DM-2 GERD HYPOTHYROIDISM HTN SCHIZOAFFECTIVE ANXIETY - Plan Plan: PHYSICAL THERAPY PAIN MGMT FALL PRECAUTIONS CBC/BMP IN AM
[2016-08-24] MEDS: Hydrocodone/APAP 5mg/325mg Tab PO PRN (12:23)
[2016-08-24] MEDS: APAP/Codeine 300 mg/30 mg Tab PO PRN (16:47)
[2016-08-24] MEDS: Atorvastatin Calcium 10 MG TAB PO SCH (20:50)
[2016-08-24] MEDS: ceFAZolin 1 GM in Sodium Chloride 0.9% 50 ML IV SCH (20:51)
[2016-08-25 05:46] LABS: HEMATOCRIT 34.2 % (35.0-45.0); HEMOGLOBIN 11.6 gm/dL (11.7-16.1); MEAN CELL VOLUME 89.9 fl (81-100); MEAN CORPUSCULAR HEMOGLOBIN 30.4 pg (27.0-31.0); MEAN CORPUSCULAR HGB CONC 33.8 pg (28.0-36.0); MEAN PLATELET VOLUME 9.2 fl; PLATELET COUNT 157 Th/cmm (150-400); RED CELL DISTRIBUTION WIDTH 13.2 % (11.5-20.0)
[2016-08-25 05:53] LABS: WHITE BLOOD COUNT 8.8 Th/cmm (4.8-10.8)
[2016-08-25 06:15] LABS: ANION GAP 11.2 (7.0-16.0); BUN - UREA NITROGEN 23 mg/dL (7-25); BUN/CREATININE RATIO 32.9; CALCIUM SERUM 9.3 mg/dL (8.6-10.3); CARBON DIOXIDE 25.6 mEq/L (21.0-31.0); CHLORIDE 99 mEq/L (98-107); CREATININE - SERUM 0.7 mg/dL (0.6-1.2); GLUCOSE 295 mg/dL (70-105); POTASSIUM SERUM 3.8 mEq/L (3.5-5.1); SODIUM SERUM 132 mEq/L (136-145)
[2016-08-25] MEDS: Levothyroxine 0.075 Mg Tab PO SCH (06:32)
[2016-08-25] MEDS: ceFAZolin 1 GM in Sodium Chloride 0.9% 50 ML IV SCH ×3 (06:32→20:30)
[2016-08-25] MEDS: INSULIN ASPART, RECOMBINANT 100 UNITS/ML SUBQ SCH ×4 (07:10→20:46)
[2016-08-25 09:20] LABS: BAND NEUTROPHILE 7 % (0-10); EOSINOPHIL 1 % (0-5); NEUTROPHILS 75 % (40-80); PLATELET ESTIMATE ADEQUATE (NORMAL); PLATELET MORPHOLOGY NORMAL (NORMAL); TOTAL CELLS COUNTED 100
[2016-08-25] MEDS: Hydrocodone/APAP 5mg/325mg Tab PO PRN ×2 (09:22→17:15)
[2016-08-25] MEDS: Multivitamin Tab PO SCH (09:22)
[2016-08-25] MEDS: Pantoprazole 40 mg EC Tab PO SCH (09:22)
--- NOTE | 2016-08-25 15:11 | Internal Medicine Prog Note ---
Internal Medicine Subjective - Subjective Patient seen and examined:: with staff, chart reviewed Patient is:: awake, interactive Per staff patient is:: no adverse event Internal Medicine Objective - Results Result Diagrams: 08/25/16 05:12 08/25/16 05:12 Recent Labs: Laboratory Last Values WBC 8.8 Th/cmm (4.8-10.8) D 08/25/16 05:12 RBC 3.80 Mil/cmm (3.80-5.20) 08/25/16 05:12 Hgb 11.6 gm/dL (11.7-16.1) L 08/25/16 05:12 Hct 34.2 % (35.0-45.0) L 08/25/16 05:12 MCV 89.9 fl (81-100) 08/25/16 05:12 MCH 30.4 pg (27.0-31.0) 08/25/16 05:12 MCHC Differential 33.8 pg (28.0-36.0) 08/25/16 05:12 RDW 13.2 % (11.5-20.0) 08/25/16 05:12 Plt Count 157 Th/cmm (150-400) 08/25/16 05:12 MPV 9.2 fl 08/25/16 05:12 Neutrophils % 63.1 % (40.0-80.0) 08/24/16 05:16 Band Neutrophils % 7 % (0-10) 08/25/16 05:12 Lymphocytes % 24.6 % (20.0-50.0) 08/24/16 05:16 Monocytes % 7.9 % (2.0-10.0) 08/24/16 05:16 Eosinophils % 3.5 % (0.0-5.0) 08/24/16 05:16 Basophils % 0.9 % (0.0-2.0) 08/24/16 05:16 Neutrophils (Manual) 75 % (40-80) 08/25/16 05:12 Lymphocytes 6 % (20-50) L 08/25/16 05:12 Monocytes 11 % (2-10) H 08/25/16 05:12 Eosinophils 1 % (0-5) 08/25/16 05:12 Platelet Estimate ADEQUATE (NORMAL) 08/25/16 05:12 Platelet Morphology NORMAL (NORMAL) 08/25/16 05:12 RBC Morph Micro Appear NORMAL (NORMAL) 08/25/16 05:12 PT 8.9 SECONDS (9.5-11.5) L 08/24/16 05:16 INR 0.90 (0.5-1.4) 08/24/16 05:16 PTT (Actin FS) 22.7 SECONDS (26.0-38.0) L 08/22/16 05:24 Sodium 132 mEq/L (136-145) L 08/25/16 05:12 Potassium 3.8 mEq/L (3.5-5.1) 08/25/16 05:12 Chloride 99 mEq/L (98-107) 08/25/16 05:12 Carbon Dioxide 25.6 mEq/L (21.0-31.0) 08/25/16 05:12 Anion Gap 11.2 (7.0-16.0) 08/25/16 05:12 BUN 23 mg/dL (7-25) 08/25/16 05:12 Creatinine 0.7 mg/dL (0.6-1.2) 08/25/16 05:12 Est GFR ( Amer) TNP 08/25/16 05:12 Est GFR (Non-Af Amer) TNP 08/25/16 05:12 BUN/Creatinine Ratio 32.9 08/25/16 05:12 Glucose 295 mg/dL (70-105) H 08/25/16 05:12 POC Glucose 297 MG/DL (70 - 105) H 08/25/16 11:33 Hemoglobin A1c % 8.9 % (4.0-6.0) H 08/21/16 21:22 Calcium 9.3 mg/dL (8.6-10.3) 08/25/16 05:12 Total Bilirubin 0.3 mg/dL (0.3-1.0) 08/21/16 21:22 AST 17 U/L (13-39) 08/21/16 21:22 ALT 15 U/L (7-52) 08/21/16 21:22 Alkaline Phosphatase 68 U/L (34-104) 08/21/16 21:22 Ammonia 45 umol/L (16-53) 08/22/16 05:24 Total Protein 6.8 gm/dL (6.0-8.3) 08/21/16 21:22 Albumin 3.9 gm/dL (3.7-5.3) 08/21/16 21:22 Globulin 2.9 gm/dL 08/21/16 21:22 Albumin/Globulin Ratio 1.3 (1.0-1.8) 08/21/16 21:22 Vitamin B12 607 pg/mL (211-946) 08/22/16 05:24 Folic Acid 17.4 ng/mL (>3.0) 08/22/16 05:24 TSH 1.24 uIU/ml (0.34-5.60) 08/22/16 05:24 Urine Source CLEAN C 08/22/16 03:50 Urine Color YELLOW 08/22/16 03:50 Urine Clarity CLEAR (CLEAR) 08/22/16 03:50 Urine pH 7.0 08/22/16 03:50 Ur Specific [place] 1.015 (1.005-1.030) 08/22/16 03:50 Urine Protein NEGATIVE mg/dL (NEGATIVE) 08/22/16 03:50 Urine Glucose (UA) 100 mg/dL (NEGATIVE) H 08/22/16 03:50 Urine Ketones NEGATIVE mg/dL (NEGATIVE) 08/22/16 03:50 Urine Blood NEGATIVE (NEGATIVE) 08/22/16 03:50 Urine Nitrate NEGATIVE (NEGATIVE) 08/22/16 03:50 Urine Bilirubin NEGATIVE (NEGATIVE) 08/22/16 03:50 Urine Urobilinogen 0.2 E.U./dL (0.2 - 1.0) 08/22/16 03:50 Ur Leukocyte Esterase NEGATIVE (NEGATIVE) 08/22/16 03:50 Urine RBC NONE SEEN /hpf (0-5) 08/22/16 03:50 Urine WBC NONE SEEN /hpf (0-5) 08/22/16 03:50 Ur Epithelial Cells NONE SEEN /lpf (FEW) 08/22/16 03:50 Urine Bacteria NONE SEEN /hpf (NONE SEEN) 08/22/16 03:50 - Physical Exam Vitals and I&O: Vital Signs Temp 99.0 F 08/25/16 12:25 Pulse 84 08/25/16 12:25 Resp 18 08/25/16 12:25 BP 157/91 08/25/16 10:16 Pulse Ox 94 08/25/16 12:25 Intake & Output 08/24/16 08/25/16 08/25/16 18:59 06:59 18:59 Intake Total 1200 50 Balance 1200 50 Intake: Intake, IV Amount 50 ceFAZolin 1 gm In Sodium 50 Chloride 0.9% 50 ml @ 100 mls/hr IV Q8HR [facility] Rx#: [id number] Oral 1200 Other: # Voids 3 Active Medications: Current Medications Acetaminophen (Tylenol) 650 mg PO Q4HR PRN PRN Reason: Pain or Fever >101 Stop: 10/20/16 21:30 Acetaminophen/Codeine Phosphate (Tylenol W/Codeine #3) 1 tab PO TID PRN PRN Reason: KNEE PAIN Stop: 10/23/16 14:28 Last Admin: 08/24/16 16:47 Dose: 1 tab Acetaminophen/Hydrocodone Bitart ([place] 5mg/325mg) 1 tab PO Q4H PRN PRN Reason: Pain (Severe) Stop: 10/20/16 21:34 Last Admin: 08/25/16 09:22 Dose: 1 tab Albuterol Sulfate (Albuterol 2.5mg/3ml Neb Ud) 2.5 mg HHN Q2HR PRN PRN Reason: Shortness of Breath or Wheeze Stop: 10/20/16 21:34 Artificial Tears (Artificial Tears Ophth Soln) 1 drop EACH EYE Q4HR PRN PRN Reason: Dry Eye Atorvastatin Calcium (Lipitor) 10 mg PO HS JODEE PRN Reason: Protocol Stop: 10/21/16 20:59 Last Admin: 08/24/16 20:50 Dose: 10 mg Bisacodyl (Dulcolax 10 Mg Supp) 10 mg RC DAILY PRN PRN Reason: Constipation Stop: 10/20/16 21:30 Docusate Sodium (Colace) 100 mg PO BID [facility] Stop: 10/21/16 08:59 Last Admin: 08/25/16 09:22 Dose: 100 mg Heparin Sodium (Porcine) (Heparin) 5,000 units SUBQ Q12HR [facility] Stop: 10/21/16 08:59 Last Admin: 08/25/16 09:23 Dose: 5,000 units Cefazolin Sodium 1 gm/ Sodium (Chloride) 50 mls @ 100 mls/hr IV Q8HR [facility] Stop: 08/25/16 23:59 Last Admin: 08/25/16 06:32 Dose: 100 mls/hr Insulin Aspart (Novolog) 0 units SUBQ ACHS JODEE PRN Reason: Protocol Stop: 10/21/16 07:29 Last Admin: 08/25/16 11:40 Dose: 4 units Ipratropium [place] (Atrovent Neb 0.5mg/2.5ml) 0.5 mg HHN Q2HR PRN PRN Reason: Shortness of Breath or Wheeze Stop: 10/20/16 21:34 Levothyroxine Sodium (Synthroid) 0.075 mg PO QDAC JODEE Stop: 10/21/16 07:29 Last Admin: 08/25/16 06:32 Dose: 0.075 mg Lisinopril (Zestril) 5 mg PO DAILY JODEE Stop: 10/21/16 08:59 Last Admin: 08/25/16 09:22 Dose: 5 mg Magnesium Hydroxide (Milk Of Magnesia) 30 ml PO HS PRN PRN Reason: Constipation Stop: 10/20/16 21:30 Miscellaneous (Vte Chemical Prophylaxis Screen/ Admission) 1 ea [facility] PRN PRN PRN Reason: PROTOCOL Stop: 10/21/16 14:59 Multivitamins/Vitamin C (Theragran) 1 tab PO DAILY JODEE Stop: 10/21/16 08:59 Last Admin: 08/25/16 09:22 Dose: 1 tab Ondansetron HCl (Zofran) 4 mg IV Q8H PRN PRN Reason: Nausea / Vomiting Stop: 10/20/16 21:34 Pantoprazole Sodium (Protonix) 40 mg PO DAILY JODEE Stop: 10/21/16 08:59 Last Admin: 08/25/16 09:22 Dose: 40 mg Risperidone (Risperdal) 1 mg PO HS JODEE PRN Reason: Protocol Stop: 10/21/16 20:59 Last Admin: 08/24/16 20:50 Dose: 1 mg Senna (Senna) 8.6 mg PO DAILY JODEE Stop: 10/21/16 08:59 Last Admin: 08/25/16 09:22 Dose: 8.6 mg Sertraline HCl (Zoloft) 25 mg PO DAILY JODEE PRN Reason: Protocol Stop: 10/21/16 08:59 Last Admin: 08/25/16 09:22 Dose: 25 mg Trihexyphenidyl HCl (Artane) 1 mg PO BID [facility] Stop: 10/21/16 08:59 Last Admin: 08/25/16 09:23 Dose: 1 mg Zolpidem Tartrate (Ambien) 10 mg PO HS PRN PRN Reason: Insomnia Stop: 10/20/16 21:34 General: alert HEENT: NC/AT, PERRLA Neck: Supple Lungs: CTAB Cardiovascular: RRR, Normal S1 Abdomen: soft non-tender, globular Extremities: excoriation, other (dressing knee) Neurological: no change Internal Medicine Assmt/Plan - Assessment Assessment: IGHT PATELLA FRACTURE, s/p orif DM-2 GERD HYPOTHYROIDISM HTN SCHIZOAFFECTIVE ANXIETY - Plan Plan: pain control dvt and gastitis px cpm dw rn
[2016-08-25] MEDS: Atorvastatin Calcium 10 MG TAB PO SCH (20:47)
[2016-08-25] MEDS: APAP/Codeine 300 mg/30 mg Tab PO PRN (20:47)
--- NOTE | 2016-08-26 00:35 | Operative Report ---
SURGEON: Dr. Yvette La. DIAGNOSTIC CARDIAC SONOGRAPHER: The nurse. PREOPERATIVE DIAGNOSIS: Comminuted displaced fracture of the patella on the right knee. POSTOPERATIVE DIAGNOSIS: Comminuted displaced fracture of the patella on the right knee. OPERATION: Open reduction internal fixation of the fracture of the patella by using the 18-gauge wire and 2-mm K wires. PROCEDURE IN DETAIL: After the patient was anesthetized, the part was scrubbed and draped in an aseptic manner. The tourniquet was inflated, the time was noted. A midline incision was made in front of the patella starting from the lower part of the quadriceps, patella and to the medial side of the tibial tubercle. Skin, superficial and deep fascia was cut. Full-thickness flap was raised from the quadriceps retinacular and the ligamentum patellae on the medial side and then minimally, it was also raised on the lateral side. The fracture site was dissected. It was cleaned with a curette. After cleaning with a curette the proximal part, a 2-mm K-wire was passed on the lateral and vertical direction and through this, the K-wire was passed. Similarly another drill hole was made on the medial side of the proximal part of the patella and 2-mm drill holes were made down and the K-wire was passed. This K-wire was pushed into the distal fragment after the distal fragment had been reduced and was held with a clamp. After passing these two K-wires, one on the lateral side, one on the medial side in the patella, those K-wires were bent on the distal part and also on the proximal part, so as to form a hook. In the proximal part, they were bent backwards and also in the distal part, they were bent. Now, an 18-gauge wire was passed around these two K-wires so as to clamp it and then was twisted and it helped in reducing the fracture further. An attempt was made so as to approximate them on the back of the kneecap, that is, on the patella so as to bring them to smooth, but it may be possible that some of the fragment may not be smooth on the back. After twisting the one K-wire on the lateral side and the second K-wire on the medial side, the fracture was reduced and was held in a good position. It was checked by flexing the knee and extending and it was holding good with these two tension wires as well as the K-wires. The wires and the K-wires were twisted back so as to bury them into the bone, all four of them and also the 18-gauge wires. The knee was thoroughly irrigated with a #1 suture. The rupture on the lateral side and on the medial side in the retinacula was stitched with interrupted sutures. The full-thickness flap which was raised subcutaneously was stitched also with a #1 interrupted K-wire. The bleeding points were coagulated and subcutaneous stitches were applied with a 2-0 Vicryl and skin with the jonny. After application of this, a bulky dressing was applied and the knee immobilizer and the patient was transferred to the recovery room in a satisfactory condition. JOB# [id number]
--- NOTE | 2016-08-26 01:32 | Consultation ---
HISTORY OF PRESENT ILLNESS: I was asked to see this patient at the [facility] and she gave me the history that she fell down and she broke her right kneecap that is patella and she was not able to move the leg. It was painful, swollen and the x-ray did show that it had a comminuted displaced fracture of the patella. As far as the past, history of this patient was concerned, she told me that she had diabetes for which she takes insulin. She has high cholesterol and is on medicine. PHYSICAL EXAMINATION: VITAL SIGNS: She does not have any high blood pressure and she is 5 feet 4 inches tall and weighs 130 pounds. HEENT: She is normocephalic. Normal eye movements. Normal ears, nose, throat. No ____. CHEST: Clear. No crepitus, no rhonchi. HEART: First and second sound no compliment. ABDOMEN: Soft and normal. No organomegaly. No flank tenderness. GENITOURINARY: Passing urine normally. ALLERGIES: Does not give any history of any allergy. I discussed with her, explained to her that this will need an operation, ORIF and I told her that I will do it after she has been authorized and also she had medical clearance. She was admitted under Dr. Lenny Hauser and she was medically clear and then I will do the operation and the operation will be open reduction and internal fixation of the fracture of the patella. INFORMED CONSENT: I informed her. This will need the wires and the ____ screws hardware and also that she must understand there is a chance of infection. There are known and unknown complications. She accepted it and decided to have this operation done. JOB# [id number]
[2016-08-26] MEDS: INSULIN ASPART, RECOMBINANT 100 UNITS/ML SUBQ SCH ×2 (06:38→12:25)
[2016-08-26] MEDS: Levothyroxine 0.075 Mg Tab PO SCH (06:39)
[2016-08-26 06:58] LABS: % BASOPHILS 0.8 % (0.0-2.0); % EOSINOPHILS 1.7 % (0.0-5.0); % LYMPHOCYTES 11.7 % (20.0-50.0); % MONOCYTES 8.8 % (2.0-10.0); HEMOGLOBIN 10.7 gm/dL (11.7-16.1); MEAN CELL VOLUME 89.6 fl (81-100); MEAN CORPUSCULAR HEMOGLOBIN 30.9 pg (27.0-31.0); MEAN CORPUSCULAR HGB CONC 34.5 pg (28.0-36.0); MEAN PLATELET VOLUME 9.8 fl; NEUTROPHILE ABSOLUTE 5.6 Th/cmm (1.8-8.0); PLATELET COUNT 152 Th/cmm (150-400); RED BLOOD COUNT 3.46 Mil/cmm (3.80-5.20); RED CELL DISTRIBUTION WIDTH 13.5 % (11.5-20.0); WHITE BLOOD COUNT 7.2 Th/cmm (4.8-10.8)
[2016-08-26 07:07] LABS: ANION GAP 12.6 (7.0-16.0); BUN - UREA NITROGEN 27 mg/dL (7-25); BUN/CREATININE RATIO 33.8; CALCIUM SERUM 9.2 mg/dL (8.6-10.3); CARBON DIOXIDE 26.5 mEq/L (21.0-31.0); CHLORIDE 99 mEq/L (98-107); CREATININE - SERUM 0.8 mg/dL (0.6-1.2); GLUCOSE 298 mg/dL (70-105); POTASSIUM SERUM 4.1 mEq/L (3.5-5.1); SODIUM SERUM 134 mEq/L (136-145)
[2016-08-26] MEDS: Multivitamin Tab PO SCH (08:38)
[2016-08-26] MEDS: Hydrocodone/APAP 5mg/325mg Tab PO PRN ×2 (08:38→13:42)
[2016-08-26] MEDS: Pantoprazole 40 mg EC Tab PO SCH (08:38)
--- NOTE | 2016-08-26 21:59 | Discharge Summary ---
CHIEF COMPLAINT: Status post fall, right knee pain. FINAL DIAGNOSES: Right patellar fracture status post open reduction and internal fixation, anemia, diabetes, gastroesophageal reflux disease, hypothyroidism, hypertension and obesity, schizoaffective disorder. HISTORY OF PRESENT ILLNESS: This is a 71-year-old female with history of GERD, schizoaffective disorder, diabetes, was admitted from nursing facility secondary to a fall while doing activity. The patient was transferred for further care. PHYSICAL EXAMINATION: VITAL SIGNS: Blood pressure ____, respirations 18, pulse 74, temperature 98. GENERAL: Elderly female, mildly obese. NECK: Supple. LUNGS: Equal breath sounds, otherwise clear to auscultation. HEART: Regular rate and rhythm without appreciable murmur. ABDOMEN: Soft, nontender. EXTREMITIES: No clubbing, cyanosis. Positive dressing in the right knee. HOSPITAL COURSE: The patient was admitted to medical floor, referred to Dr. La for surgery. The patient did well. The patient cleared for discharge. We will continue to follow with physical therapy and follow up on an outpatient basis. CONDITION ON DISCHARGE: Fair. DISCHARGE INSTRUCTIONS: As above. JOB# [id number]
== END 2016-08-26 17:57 | DRG 516 ==
LOC: ER 19:26 → MSI 21:15
PROVIDERS: ADMIT Internal Medicine; ATTEND Internal Medicine
PROC: 0QSD04Z Reposition Right Patella with Internal Fixation Device, Open Approach (ICD-10-PCS; principal; 2016-08-25)
DX: S82.041A Displaced comminuted fracture of right patella, initial encounter for closed fracture (principal); E87.1 Hypo-osmolality and hyponatremia; E11.9 Type 2 diabetes mellitus without complications; D64.9 Anemia, unspecified; R13.10 Dysphagia, unspecified; I10 Essential (primary) hypertension; E03.9 Hypothyroidism, unspecified; F25.9 Schizoaffective disorder, unspecified; K21.9 Gastro-esophageal reflux disease without esophagitis; F41.9 Anxiety disorder, unspecified; W18.39XA Other fall on same level, initial encounter; Y93.89 Activity, other specified; Y92.89 Other specified places as the place of occurrence of the external cause; Y99.8 Other external cause status; Z79.4 Long term (current) use of insulin
CPT/HCPCS: 29505; 36415-UA; 71010-TC; 73560-TC-RT; 73562-TC-RT; 80048-TC; 80053-TC; 81001-TC; 81003-TC; 82140-TC; 82607-90; 82746-90; 82948-90; 83036-90; 84443-TC; 85007-TC; 85025-TC; 85027-TC; 85610-TC; 90799; 93005; 94760; J0690; J1644; J1815; J7030; Z7610

== ENCOUNTER 2016-08-29 18:27 | Inpatient (IN) | payer MEDICARE, MEDICAID ==
--- NOTE | 2016-08-29 19:10 | ED Physician Chart ---
Chief Complaint/HPI - Patient Information Date Seen:: 08/29/16 Time Seen:: 18:15 Chief Complaint:: Redness and pain in R knee for one week History of Present Illness:: Pt was brought in by ambulance because of increased redness at surgical wound site at R knee for about one week. Pt is s/p R knee surgery related to R patellar fx. about 9 days ago.. No fever. Pt is not fully cooperative; thus, H & P are limited. Allergies:: Allergies Allergy/AdvReac Type Severity Reaction Status Date / Time No Known Allergies Allergy Verified 08/21/16 19:40 Vitals:: Vital Signs - 8 hr 08/29/16 18:41 Temp 98.4 F HR 77 RR 17 BP 101/60 O2 Sat % 90 Historian:: Patient, Medical Records (from transferring facility.) Family MD/PCP:: Dr. Truong LMP:: Postmenopausal. Review:: Nurse's Note Reviewed, Transfer documents Reviewed Review of Systems - Review of Systems General/Constitutional: Other (Pt does not cooperate fully for ROS.) Past Medical History - Past Medical History Past Medical History: HTN, DM, Dyslipidemia, PUD/GERD, Thyroid disorder, Other ( Parkinson's Disease) Family History: Other (Pt does not cooperate to provide info on FHx.) Social History: Care Facility, Other (Pt does not cooperate to provide info on SHx.) Surgical History: other (R knee surgery for R patellar fx about 9 days ago.) Psychiatricy History: Depression, Schizophrenia Medication: Reviewed Family Medical History - Family Member Mother History Unknown: Yes Ethnicity: Unknown Living Status: Unknown Hx Family Cancer: No Hx Family Coronary Artery Disease: No Hx Family Congestive Heart Failure: No Hx Family Hypertension: No Hx Family Stroke: No Hx Family Diabetes: No Hx Family Seizures: No Hx Family Dementia: No Hx Family AIDS: No Hx Family HIV: No Hx Family COPD: No Hx Family Hepatitis: No Hx Family Psychiatric Problems: No Hx Family Tuberculosis: No Physical Exam - Physical Examination General/Constitutional: Awake, Well-developed, well-nourished, Alert, No distress, Non-toxic appearing Other Gen/Cons comments:: Breathes comfortably, responds to questions, and overall interacts normally. Pt is not fully cooperative. Head: Atraumatic Eyes: Lids, conjuctiva normal, PERRL, EOMI Other Skin comments:: see also Extremities exam below. ENMT: External ears, nose nl, Nasal exam nl, Oropharynx nl Neck: Nontender, Full ROM w/o pain, No JVD, No nuchal rigidity, No mass, No stridor Respiratory: Nl effort/Exclusion, Clear to Auscultation, No Wheeze/Rhonchi/Rales Cardio Vascular: RRR, No murmur, gallop, rubs, NL S1 S2 GI: No tenderness/rebounding/guarding, No organomegaly, No hernia, Normal BS's, Nondistended, No mass/bruits, No McBurney tenderness Other GI comments:: Abdomen is soft. Other Extremities comments:: RLE: R knee has an approx 14 cm longitudinal wound in anterior aspect with surgical jonny in place. There is peripheral erythema with warmth at and adjacent to the surgical wound. No crepitus or exudate. ROM is decreased due to pain. R knee exam is limited due to recent surgery and pain. No detectable motor/sensory/vascular deficit. Good distal pulse. Neuro/Psych: Alert/oriented (oriented x 3), No focal deficits Labs/Radiology/EKG Results - Lab Results Results: Laboratory Tests 08/29/16 08/29/16 08/29/16 19:21 19:21 19:21 WBC 7.3 RBC 3.33 L Hgb 10.1 L Hct 30.5 L MCV 91.6 MCH 30.5 MCHC Differential 33.3 RDW 12.9 Plt Count 219 D MPV 8.6 Neutrophils % 82.7 H Lymphocytes % 9.3 L Monocytes % 6.2 Eosinophils % 0.9 Basophils % 0.9 ESR 71 H PT 8.9 L INR 0.90 PTT (Actin FS) 28.1 Sodium 127 L Potassium 5.7 H Chloride 95 L Carbon Dioxide 30.3 Anion Gap 7.4 BUN 38 H Creatinine 1.2 Est GFR ( Amer) TNP Est GFR (Non-Af Amer) TNP BUN/Creatinine Ratio 31.7 Glucose 413 H POC Glucose Calcium 9.3 Total Bilirubin 0.4 AST 18 ALT 17 Alkaline Phosphatase 63 Creatine Kinase Troponin I Total Protein 6.6 Albumin 3.2 L Globulin 3.4 Albumin/Globulin Ratio 0.9 L Serum Ketones 08/29/16 08/29/16 08/29/16 19:21 19:21 19:21 WBC RBC Hgb Hct MCV MCH MCHC Differential RDW Plt Count MPV Neutrophils % Lymphocytes % Monocytes % Eosinophils % Basophils % ESR PT INR PTT (Actin FS) Sodium Potassium Chloride Carbon Dioxide Anion Gap BUN Creatinine Est GFR ( Amer) Est GFR (Non-Af Amer) BUN/Creatinine Ratio Glucose POC Glucose Calcium Total Bilirubin AST ALT Alkaline Phosphatase Creatine Kinase 42 Troponin I < 0.01 L Total Protein Albumin Globulin Albumin/Globulin Ratio Serum Ketones NEGATIVE 08/29/16 20:20 WBC RBC Hgb Hct MCV MCH MCHC Differential RDW Plt Count MPV Neutrophils % Lymphocytes % Monocytes % Eosinophils % Basophils % ESR PT INR PTT (Actin FS) Sodium Potassium Chloride Carbon Dioxide Anion Gap BUN Creatinine Est GFR ( Amer) Est GFR (Non-Af Amer) BUN/Creatinine Ratio Glucose POC Glucose 380 H Calcium Total Bilirubin AST ALT Alkaline Phosphatase Creatine Kinase Troponin I Total Protein Albumin Globulin Albumin/Globulin Ratio Serum Ketones Laboratory Last Values WBC 7.3 Th/cmm (4.8-10.8) 08/29/16 19:21 RBC 3.33 Mil/cmm (3.80-5.20) L 08/29/16 19:21 Hgb 10.1 gm/dL (11.7-16.1) L 08/29/16 19:21 Hct 30.5 % (35.0-45.0) L 08/29/16 19:21 MCV 91.6 fl (81-100) 08/29/16 19:21 MCH 30.5 pg (27.0-31.0) 08/29/16 19:21 MCHC Differential 33.3 pg (28.0-36.0) 08/29/16 19:21 RDW 12.9 % (11.5-20.0) 08/29/16 19:21 Plt Count 219 Th/cmm (150-400) D 08/29/16 19:21 MPV 8.6 fl 08/29/16 19:21 Neutrophils % 82.7 % (40.0-80.0) H 08/29/16 19:21 Lymphocytes % 9.3 % (20.0-50.0) L 08/29/16 19:21 Monocytes % 6.2 % (2.0-10.0) 08/29/16 19:21 Eosinophils % 0.9 % (0.0-5.0) 08/29/16 19:21 Basophils % 0.9 % (0.0-2.0) 08/29/16 19:21 ESR 71 mm/hr (0-30) H 08/29/16 19:21 PT 8.9 SECONDS (9.5-11.5) L 08/29/16 19:21 INR 0.90 (0.5-1.4) 08/29/16 19:21 PTT (Actin FS) 28.1 SECONDS (26.0-38.0) 08/29/16 19:21 Sodium 127 mEq/L (136-145) L 08/29/16 19:21 Potassium 5.7 mEq/L (3.5-5.1) H 08/29/16 19:21 Chloride 95 mEq/L (98-107) L 08/29/16 19:21 Carbon Dioxide 30.3 mEq/L (21.0-31.0) 08/29/16 19:21 Anion Gap 7.4 (7.0-16.0) 08/29/16 19:21 BUN 38 mg/dL (7-25) H 08/29/16 19:21 Creatinine 1.2 mg/dL (0.6-1.2) 08/29/16 19:21 Est GFR ( Amer) TNP 08/29/16 19:21 Est GFR (Non-Af Amer) TNP 08/29/16 19:21 BUN/Creatinine Ratio 31.7 08/29/16 19:21 Glucose 413 mg/dL (70-105) H 08/29/16 19:21 POC Glucose 380 MG/DL (70 - 105) H 08/29/16 20:20 Calcium 9.3 mg/dL (8.6-10.3) 08/29/16 19:21 Total Bilirubin 0.4 mg/dL (0.3-1.0) 08/29/16 19:21 AST 18 U/L (13-39) 08/29/16 19:21 ALT 17 U/L (7-52) 08/29/16 19:21 Alkaline Phosphatase 63 U/L (34-104) 08/29/16 19:21 Creatine Kinase 42 U/L (30-223) 08/29/16 19:21 Troponin I < 0.01 ng/mL (0.01-0.05) L 08/29/16 19:21 Total Protein 6.6 gm/dL (6.0-8.3) 08/29/16 19:21 Albumin 3.2 gm/dL (3.7-5.3) L 08/29/16 19:21 Globulin 3.4 gm/dL 08/29/16 19:21 Albumin/Globulin Ratio 0.9 (1.0-1.8) L 08/29/16 19:21 Serum Ketones NEGATIVE (NEGATIVE) 08/29/16 19:21 - Radiology Results Results: R knee X-ray ( 3v): Based on my interpretation, R patellar fx with surgical jonny, wires and hardware in place. No bony erosion. Mild soft tissue swelling. Official report is pending. - EKG Interpretations EKG Time:: 20:33 Rhythm: Sinus bradycardia Rate: 55 Comments:: LVH J point elevations. NSSTT changes. ED Septic Shock - . Is Septic Shock (SBP<90, OR Lactate>4 mmol\L) present?: No - <6hrs of presentation: Vital Signs: Vital Signs - 8 hr 08/29/16 18:41 Temp 98.4 F HR 77 RR 17 BP 101/60 O2 Sat % 90 Reassessment (Disposition) - Reassessment Reassessment:: 2009 Pt remains stable. Lab results just became available. Will given pt IV hydration with normal saline, regular insulin 8 units subcutaneous, and will do further lab studies. 2100 Pt rests comfortably. Available lab results, EKG, and radiological findings have been reviewed with pt. Management plan has been discussed. Awaiting pending lab results. 2135 Remaining lab results just became available and have been discussed with pt. Dr. Hauser is to be contacted. 2146 Case was discussed with Dr. Hauser with H & P, EKG, X-ray, and lab findings reviewed. He concurred with treatment given. Pt is to be admitted to [facility] under his care. Reassessment Condition:: Improved - Diagnosis Diagnosis:: h/o R patellar fx, s/p surgical repair with internal fixation and reduction. Surgical wound infection with associated early cellulitis. Stable. Poorly controlled diabetes mellitus. Hyperkalemia. - Patient Disposition Admitted to:: Med/Surg Admitting Medical Physician:: Lenny Hauser Time:: 21:50 Condition at Disposition:: Stable, Improved
[2016-08-29 19:30] LABS: % BASOPHILS 0.9 % (0.0-2.0); % EOSINOPHILS 0.9 % (0.0-5.0); % LYMPHOCYTES 9.3 % (20.0-50.0); % MONOCYTES 6.2 % (2.0-10.0); % NEUTROPHILS 82.7 % (40.0-80.0); HEMATOCRIT 30.5 % (35.0-45.0); HEMOGLOBIN 10.1 gm/dL (11.7-16.1); MEAN CELL VOLUME 91.6 fl (81-100); MEAN CORPUSCULAR HEMOGLOBIN 30.5 pg (27.0-31.0); MEAN CORPUSCULAR HGB CONC 33.3 pg (28.0-36.0); MEAN PLATELET VOLUME 8.6 fl; NEUTROPHILE ABSOLUTE 5.9 Th/cmm (1.8-8.0); RED BLOOD COUNT 3.33 Mil/cmm (3.80-5.20); RED CELL DISTRIBUTION WIDTH 12.9 % (11.5-20.0); WHITE BLOOD COUNT 7.3 Th/cmm (4.8-10.8)
[2016-08-29 19:37] LABS: PLATELET COUNT 219 Th/cmm (150-400)
[2016-08-29 19:40] LABS: PROTHROMBIN TIME (TEST) 8.9 SECONDS (9.5-11.5)
[2016-08-29 19:42] LABS: INR 0.9 (0.5-1.4)
[2016-08-29 19:43] LABS: ALB/GLOB RATIO 0.9 (1.0-1.8); ALKALINE PHOSPHATASE 63 U/L (34-104); ANION GAP 7.4 (7.0-16.0); BILIRUBIN,TOTAL 0.4 mg/dL (0.3-1.0); BUN - UREA NITROGEN 38 mg/dL (7-25); BUN/CREATININE RATIO 31.7; CALCIUM SERUM 9.3 mg/dL (8.6-10.3); CARBON DIOXIDE 30.3 mEq/L (21.0-31.0); CHLORIDE 95 mEq/L (98-107); CREATININE - SERUM 1.2 mg/dL (0.6-1.2); GLUCOSE 413 mg/dL (70-105); POTASSIUM SERUM 5.7 mEq/L (3.5-5.1); SGOT 18 U/L (13-39); SGPT/ALT 17 U/L (7-52); SODIUM SERUM 127 mEq/L (136-145)
[2016-08-29] MEDS ORDERED: Sodium Chloride 0.9% 500 ML IV ONE (20:10)
[2016-08-29] MEDS ORDERED: INSULIN HUMAN REGULAR 100 UNITS/ML UNIT SUBQ ONE (20:11)
[2016-08-29] MEDS ORDERED: Levofloxacin 500mg/100mL 500 MG in Premix Fluid 1 BAG IV ONE (20:18)
[2016-08-29] MEDS ORDERED: INSULIN HUMAN REGULAR 100 UNITS/ML UNIT ONE (20:21)
[2016-08-29] MEDS ORDERED: Levofloxacin 500mg/100mL 500 MG/100 ML BAG IV ONE (20:42)
--- NOTE | 2016-08-29 22:00 | Admit Criteria Form ---
Admit Criteria Forms - Admit Criteria Diagnosis: WOUND COMPLICATIONS Clinical Indications for Inpatient Care (Place 'X' for any and all applicable criteria): Ongoing inpatient care may be indicated for wound complications with ANY ONE of the following (1) (15): [X]I. Infection with ANY ONE of the following(32)(33): [ ]a) Temperature greater than 38.5 C (101.3 F) [ ]b) Evidence of tissue necrosis [ ]c) Erythema diameter expanding around wound despite treatment [ ]d) Mental status changes [ ]e) Dehydration [ ]f) Bacteremia [ ]g) Hemodynamic instability [ ]h) Suspected necrotizing fasciitis [ ]i) Rapidly spreading lesions [ ]j) High-risk location (eg, perineum, sternum, orbit) [X]k) High-risk coexisting clinical condition as indicated by ANY ONE of the following: [X]i) Poorly controlled diabetes [ ]ii) Cirrhosis [ ]iii) Renal failure [ ]iv) Neutropenia [ ] v) Asplenia [ ]vi) Immunosuppression (eg, AIDS, chronic corticosteroid use) [ ]viii) Other high-risk medical comorbidities [ ] II. Dehiscence requiring frequent monitoring or immediate treatment [ ] III. Hematoma with ANY ONE of the following: [ ]a) Hemodynamic instability or acute anemia due to rapid development of hematoma [ ]b) Neck hematoma causing airway compression [ ]c) Retroperitoneal hematoma [ ]d) Uncontrolled coagulopathy [ ]IV. Seroma with evidence of secondary infection and requirement for IV antibiotics [D](31) [ ]V. Pain that cannot be managed at lower level of care Extended stay beyond goal length of stay for primary condition may be needed until ALL of the following are present(1)(33)(34): [ ]a) Afebrile or fever resolving [ ]b) Hemodynamic stability [ ]c) Pain resolving [ ]d) Wound closed, continuity adequately restored, or wound manageable at lower level of care [ ]e) No drain needed or drain care manageable at lower level of care [ ]f) Wound hematoma or seroma resolving [ ]g) Antibiotics not needed or regimen manageable at lower level of care(38) [ ]h) Dressing care manageable at lower level of care [ ]i) Coagulopathy absent, resolved, or treatable at lower level of care [ ]j) Medical comorbidities resolved or treatable at lower level of care The original [facility] content created by [facility] has been revised. The portions of the content which have been revised are identified through the use of italic text or in bold, and [facility] has neither reviewed nor approved the modified material. All other unmodified content is copyright [facility]. Please see references footnoted in the original [facility] edition 2016 Admit Criteria Met?: Yes
[2016-08-29] MEDS ORDERED: Ipratropium Neb 0.5 mg/2.5 mL UD HHN PRN (22:41)
[2016-08-29] MEDS ORDERED: Magnesium Hydroxide (MOM) 30 mL UDC PO PRN (22:41)
[2016-08-29] MEDS ORDERED: Maalox 30 mL Cup PO PRN (22:41)
[2016-08-29] MEDS ORDERED: Non-Formulary Item 1 EA (Melatonin [Melatonin] 6 MG) PO PRN (22:41)
[2016-08-29] MEDS ORDERED: Albuterol Nebulizer 2.5mg/3mL HHN PRN (22:41)
[2016-08-29] MEDS ORDERED: Sodium Chloride 0.9% 1,000 ML IV SCH (23:00)
[2016-08-30 06:57] LABS: % BASOPHILS 0.4 % (0.0-2.0); % LYMPHOCYTES 23.5 % (20.0-50.0); % MONOCYTES 8.8 % (2.0-10.0); % NEUTROPHILS 63.3 % (40.0-80.0); HEMOGLOBIN 9.9 gm/dL (11.7-16.1); MEAN CELL VOLUME 91.1 fl (81-100); MEAN CORPUSCULAR HEMOGLOBIN 31.1 pg (27.0-31.0); MEAN CORPUSCULAR HGB CONC 34.1 pg (28.0-36.0); MEAN PLATELET VOLUME 8.6 fl; NEUTROPHILE ABSOLUTE 3.5 Th/cmm (1.8-8.0); PLATELET COUNT 218 Th/cmm (150-400); RED BLOOD COUNT 3.18 Mil/cmm (3.80-5.20)
[2016-08-30 07:15] LABS: ANION GAP 5.2 (7.0-16.0); BUN - UREA NITROGEN 30 mg/dL (7-25); BUN/CREATININE RATIO 33.3; CALCIUM SERUM 9.2 mg/dL (8.6-10.3); CARBON DIOXIDE 32.2 mEq/L (21.0-31.0); CHLORIDE 104 mEq/L (98-107); CREATININE - SERUM 0.9 mg/dL (0.6-1.2); GLUCOSE 160 mg/dL (70-105); MAGNESIUM 2.1 mg/dL (1.9-2.7); POTASSIUM SERUM 4.4 mEq/L (3.5-5.1); SODIUM SERUM 137 mEq/L (136-145); WHITE BLOOD COUNT 5.5 Th/cmm (4.8-10.8)
[2016-08-30] MEDS: Pantoprazole 40 mg EC Tab PO SCH (08:47)
[2016-08-30] MEDS: Multivitamin w/ Minerals Tab PO SCH (08:47)
[2016-08-30] MEDS: Hydrocodone/APAP 5mg/325mg Tab PO PRN ×3 (08:47→22:45)
[2016-08-30] MEDS: Levothyroxine 0.075 Mg Tab PO SCH (08:47)
[2016-08-30] MEDS: Insulin Detemir 100 units/mL 10mL Vial SUBQ SCH (08:51)
[2016-08-30] MEDS: INSULIN ASPART SLIDING SCALE 100 UNITS/ML UNIT SUBQ SCH ×4 (12:20→22:50)
[2016-08-30] MEDS: Sodium Chloride 0.9% 1,000 ML IV SCH (13:55)
[2016-08-30] MEDS: guaiFENesin 200 MG/10 ML UDC PO PRN (15:17)
--- NOTE | 2016-08-30 16:51 | Diagnostic Imaging Report ---
Right knee (3 views, portable) HISTORY: Pain, prior surgery. The exam demonstrates surgical hardware associated with displaced comminuted fracture of the patella. Extensive atherosclerotic vascular calcification noted. Soft tissue swelling. IMPRESSION: Surgical changes with a comminuted fracture of the patella
[2016-08-30] MEDS ORDERED: VTE Chemical Prophylaxis Screen/Admission MC PRN (17:53)
[2016-08-30] MEDS: Atorvastatin Calcium 10 MG TAB PO SCH (22:45)
--- NOTE | 2016-08-30 22:48 | History & Physical ---
CHIEF COMPLAINT: Right knee pain, redness, and warmth for several days. HISTORY OF PRESENT ILLNESS: This is a 71-year-old Occitan female with history of diabetes, GERD, hypothyroidism, hypertension, schizoaffective disorder with recent right patellar fracture and underwent open reduction and internal fixation on 08/25/[address] La. Now, the patient comes back with pain and swelling on the right knee area despite being on antibiotics, the patient was admitted for further management. PAST MEDICAL HISTORY: As mentioned in history of present illness. SURGICAL HISTORY: Status post recent right knee surgery. ALLERGIES: No known allergies. MEDICATIONS: The patient is on Tylenol, ascorbic acid, Lipitor, Colace, Melrose, Lantus, Synthroid, lisinopril, melatonin, Mylanta, ____, Artane, and Levaquin. FAMILY HISTORY: Noncontributory. SOCIAL HISTORY: Heavy smoker and drinker. The patient did some service type of work, , no children. REVIEW OF SYSTEMS: CONSTITUTIONAL: Complains not feeling well. HEENT: No blurred vision. No neck pain. LUNGS: No history of COPD or asthma. HEART: The patient has hypertension. ABDOMEN: No nausea, vomiting, or pain. GENITOURINARY: The patient denies any increases frequency or dysuria. NEUROLOGIC: No headache, seizure, or syncope. EXTREMITIES: As mentioned above. PHYSICAL EXAMINATION: VITAL SIGNS: Blood pressure 98/61, pulse 74, respiration 19, and temperature 98.7. GENERAL: Elderly female, appears stated age. NECK: Supple. No mass. LUNGS: Equal breath sounds, few rhonchi. HEART: Regular rate and rhythm without appreciable murmurs. ABDOMEN: Soft and nontender. EXTREMITIES: Positive excoriations. NEUROLOGIC: Limited. LABORATORY DATA: WBC 5.8, hemoglobin ____, platelets 218,000. ESR 71. Sodium 127, potassium 5.7. BUN 30, and creatinine 1.2. Glucose 328 and albumin 3.2. ASSESSMENT AND PLAN: 1. Right knee infection. 2. Recent right patellar open reduction and internal fixation. 3. Anemia. 4. Diabetes. 5. Gastroesophageal reflux disease. 6. Hypothyroidism. 7. Hypercholesterolemia. 8. Hypertension. 9. Schizoaffective disorder. We will continue the patient on IV antibiotics and wound care. We will refer the patient to Dr. La. We will continue with pain control. We will follow the patient's blood culture. We will x-ray the patient's right knee. We will continue to follow up the patient closely. [facility]# [id number]
[2016-08-31] MEDS: Levothyroxine 0.075 Mg Tab PO SCH (06:40)
[2016-08-31] MEDS: INSULIN ASPART SLIDING SCALE 100 UNITS/ML UNIT SUBQ SCH ×3 (06:40→22:54)
[2016-08-31] MEDS: Multivitamin w/ Minerals Tab PO SCH (08:15)
[2016-08-31] MEDS: Hydrocodone/APAP 5mg/325mg Tab PO PRN ×3 (08:15→22:31)
[2016-08-31] MEDS: Pantoprazole 40 mg EC Tab PO SCH (08:15)
[2016-08-31] MEDS: guaiFENesin 200 MG/10 ML UDC PO PRN (08:15)
[2016-08-31] MEDS: Insulin Detemir 100 units/mL 10mL Vial SUBQ SCH (08:16)
[2016-08-31] MEDS: Polyvinyl Alcohol Ophth Soln 15 mL Bottle EACH EYE PRN ×2 (08:21→16:30)
--- NOTE | 2016-08-31 15:41 | Internal Medicine Prog Note ---
Internal Medicine Subjective - Subjective Patient seen and examined:: with staff, chart reviewed Patient is:: awake, verbal, interactive Per staff patient is:: no adverse event, noncompliant, confused Internal Medicine Objective - Results Result Diagrams: 08/30/16 05:06 08/30/16 05:06 Recent Labs: Laboratory Last Values WBC 5.5 Th/cmm (4.8-10.8) D 08/30/16 05:06 RBC 3.18 Mil/cmm (3.80-5.20) L 08/30/16 05:06 Hgb 9.9 gm/dL (11.7-16.1) L 08/30/16 05:06 Hct 29.0 % (35.0-45.0) L 08/30/16 05:06 MCV 91.1 fl (81-100) 08/30/16 05:06 MCH 31.1 pg (27.0-31.0) H 08/30/16 05:06 MCHC Differential 34.1 pg (28.0-36.0) 08/30/16 05:06 RDW 13.0 % (11.5-20.0) 08/30/16 05:06 Plt Count 218 Th/cmm (150-400) 08/30/16 05:06 MPV 8.6 fl 08/30/16 05:06 Neutrophils % 63.3 % (40.0-80.0) 08/30/16 05:06 Lymphocytes % 23.5 % (20.0-50.0) 08/30/16 05:06 Monocytes % 8.8 % (2.0-10.0) 08/30/16 05:06 Eosinophils % 4.0 % (0.0-5.0) 08/30/16 05:06 Basophils % 0.4 % (0.0-2.0) 08/30/16 05:06 ESR 55 mm/hr (0-30) H 08/30/16 05:06 PT 8.9 SECONDS (9.5-11.5) L 08/29/16 19:21 INR 0.90 (0.5-1.4) 08/29/16 19:21 PTT (Actin FS) 28.1 SECONDS (26.0-38.0) 08/29/16 19:21 Sodium 137 mEq/L (136-145) 08/30/16 05:06 Potassium 4.4 mEq/L (3.5-5.1) 08/30/16 05:06 Chloride 104 mEq/L (98-107) 08/30/16 05:06 Carbon Dioxide 32.2 mEq/L (21.0-31.0) H 08/30/16 05:06 Anion Gap 5.2 (7.0-16.0) L 08/30/16 05:06 BUN 30 mg/dL (7-25) H 08/30/16 05:06 Creatinine 0.9 mg/dL (0.6-1.2) 08/30/16 05:06 Est GFR ( Amer) TNP 08/30/16 05:06 Est GFR (Non-Af Amer) TNP 08/30/16 05:06 BUN/Creatinine Ratio 33.3 08/30/16 05:06 Glucose 160 mg/dL (70-105) H 08/30/16 05:06 POC Glucose 278 MG/DL (70 - 105) H 08/31/16 15:29 Whole Bld Lactic Acid 1.42 mmol/L (0.60-2.00) 08/29/16 21:17 Calcium 9.2 mg/dL (8.6-10.3) 08/30/16 05:06 Magnesium 2.1 mg/dL (1.9-2.7) 08/30/16 05:06 Total Bilirubin 0.4 mg/dL (0.3-1.0) 08/29/16 19:21 AST 18 U/L (13-39) 08/29/16 19:21 ALT 17 U/L (7-52) 08/29/16 19:21 Alkaline Phosphatase 63 U/L (34-104) 08/29/16 19:21 Creatine Kinase 42 U/L (30-223) 08/29/16 19:21 Troponin I < 0.01 ng/mL (0.01-0.05) L 08/29/16 19:21 Total Protein 6.6 gm/dL (6.0-8.3) 08/29/16 19:21 Albumin 3.2 gm/dL (3.7-5.3) L 08/29/16 19:21 Globulin 3.4 gm/dL 08/29/16 19:21 Albumin/Globulin Ratio 0.9 (1.0-1.8) L 08/29/16 19:21 Serum Ketones NEGATIVE (NEGATIVE) 08/29/16 19:21 - Physical Exam Vitals and I&O: Vital Signs Temp 97.9 F 08/31/16 15:00 Pulse 83 08/31/16 15:00 Resp 17 08/31/16 15:00 BP 128/68 08/31/16 15:00 Pulse Ox 96 08/31/16 15:00 Intake & Output 08/30/16 08/31/16 08/31/16 18:59 06:59 18:59 Intake Total 900 825 Balance 900 825 Intake: Intake, IV Amount 100 200 Piperacillin Sodium/ 100 200 Tazobact 4.5 gm In Sodium Chloride 0.9% 100 ml @ 100 mls/hr IV Q8HR [facility] Rx #:[id number] Oral 800 25 Tube Feeding 600 Other: # Voids 2 3 Active Medications: Current Medications Acetaminophen (Tylenol) 650 mg PO Q6HR PRN PRN Reason: Mild Pain Or Fever >100.5 Stop: 10/28/16 22:40 Last Admin: 08/30/16 08:55 Dose: 650 mg Acetaminophen/Hydrocodone Bitart ([place] 5mg/325mg) 1 tab PO Q4H PRN PRN Reason: Moderate-Severe PAIN Stop: 10/28/16 22:40 Last Admin: 08/31/16 14:20 Dose: 1 tab Al Hydrox/Mg Hydrox/Simethicone (Maalox) 30 ml PO Q4H PRN PRN Reason: GI DISTRESS Albuterol Sulfate (Albuterol 2.5mg/3ml Neb Ud) 2.5 mg HHN Q2H PRN PRN Reason: Shortness of Breath Stop: 10/28/16 22:40 Artificial Tears (Artificial Tears Ophth Soln) 1 drop EACH EYE Q4HR PRN PRN Reason: Dry Eye Last Admin: 08/31/16 08:21 Dose: 1 drop Ascorbic Acid (Vitamin C) 500 mg PO DAILY [facility] Stop: 10/29/16 08:59 Last Admin: 08/31/16 08:16 Dose: 500 mg Atorvastatin Calcium (Lipitor) 10 mg PO HS [facility] PRN Reason: Protocol Stop: 10/29/16 20:59 Last Admin: 08/30/16 22:45 Dose: 10 mg Bisacodyl (Dulcolax 10 Mg Supp) 10 mg RC DAILY PRN PRN Reason: Constipation Stop: 10/28/16 22:40 Last Admin: 08/31/16 09:00 Dose: 10 mg Docusate Sodium (Colace) 100 mg PO BID JODEE Stop: 10/29/16 08:59 Last Admin: 08/31/16 08:15 Dose: 100 mg Guaifenesin (Robitussin) 200 mg PO Q4HR PRN PRN Reason: Cough or Congestion Stop: 10/29/16 14:16 Last Admin: 08/31/16 08:15 Dose: 200 mg Piperacillin Sod/Tazobactam (Sod 4.5 gm/ Sodium Chloride) 100 mls @ 100 mls/hr IV Q8HR JODEE Stop: 10/29/16 04:59 Last Admin: 08/31/16 13:50 Dose: 100 mls/hr Sodium Chloride (Nacl 0.9%) 1,000 mls @ 50 mls/hr IV .Q20H [facility] Stop: 10/29/16 13:29 Last Admin: 08/30/16 13:55 Dose: 50 mls/hr Insulin Aspart (Novolog Insulin Sliding Scale) 0 units SUBQ ACHS JODEE PRN Reason: Protocol Stop: 10/29/16 07:29 Last Admin: 08/31/16 11:24 Dose: 2 units Insulin Detemir (Levemir Insulin) 16 units SUBQ DAILY [facility] Stop: 10/29/16 08:59 Last Admin: 08/31/16 08:16 Dose: 16 units Ipratropium Golf (Atrovent Neb 0.5mg/2.5ml) 0.5 mg HHN Q2H PRN PRN Reason: Shortness of Breath Stop: 10/28/16 22:40 Levothyroxine Sodium (Synthroid) 0.075 mg PO QDAC [facility] Stop: 10/29/16 07:29 Last Admin: 08/31/16 06:40 Dose: 0.075 mg Lisinopril (Zestril) 5 mg PO DAILY JODEE Stop: 10/29/16 08:59 Last Admin: 08/31/16 08:15 Dose: 5 mg Magnesium Hydroxide (Milk Of Magnesia) 30 ml PO HS PRN PRN Reason: Constipation Stop: 10/28/16 22:40 Miscellaneous (Melatonin [Melatonin]) 6 mg PO HS PRN PRN Reason: Insomnia Miscellaneous (Vte Chemical Prophylaxis Screen/ Admission) 1 ea [facility] PRN PRN PRN Reason: PROTOCOL Stop: 10/29/16 17:52 Pantoprazole Sodium (Protonix) 40 mg PO DAILY JODEE Stop: 10/29/16 08:59 Last Admin: 08/31/16 08:15 Dose: 40 mg Risperidone (Risperdal) 1 mg PO HS JODEE PRN Reason: Protocol Stop: 10/29/16 20:59 Senna (Senna) 8.6 mg PO DAILY JODEE Stop: 10/29/16 08:59 Last Admin: 08/31/16 08:15 Dose: 8.6 mg Sertraline HCl (Zoloft) 25 mg PO HS JODEE PRN Reason: Protocol Stop: 10/29/16 20:59 Trihexyphenidyl HCl (Artane) 1 mg PO BID JODEE Stop: 10/29/16 08:59 Last Admin: 08/31/16 08:20 Dose: 1 mg General: demented HEENT: NC/AT, PERRLA Neck: Supple, No JVD Lungs: CTAB Cardiovascular: RRR, Normal S1 Abdomen: soft non-tender, globular, positive bowel sound Extremities: excoriation, other (r knee with redness, jonny) Neurological: no change - Procedures Procedures: Procedures Procedure Code Date REPOSITION RIGHT PATELLA WITH INT FIX, OPEN APPROACH [id number] 08/21/16 TREAT KNEECAP FRACTURE 87984 08/21/16 Internal Medicine Assmt/Plan - Assessment Assessment: r knee cellulitis recent r knee patellar orif sad dm htn - Plan Plan: cont on iv abx pain control ortho fu psych fu cpm dw rn
[2016-08-31] MEDS: Sodium Chloride 0.9% 1,000 ML IV SCH (16:33)
[2016-08-31] MEDS: Atorvastatin Calcium 10 MG TAB PO SCH (22:30)
[2016-09-01 06:22] LABS: % BASOPHILS 0.4 % (0.0-2.0); % EOSINOPHILS 3.1 % (0.0-5.0); % LYMPHOCYTES 20.7 % (20.0-50.0); % NEUTROPHILS 68.8 % (40.0-80.0); HEMOGLOBIN 11.1 gm/dL (11.7-16.1); MEAN CELL VOLUME 91.4 fl (81-100); MEAN CORPUSCULAR HEMOGLOBIN 30.9 pg (27.0-31.0); MEAN CORPUSCULAR HGB CONC 33.9 pg (28.0-36.0); MEAN PLATELET VOLUME 8.3 fl; NEUTROPHILE ABSOLUTE 4.9 Th/cmm (1.8-8.0); RED BLOOD COUNT 3.59 Mil/cmm (3.80-5.20); RED CELL DISTRIBUTION WIDTH 13.2 % (11.5-20.0)
[2016-09-01 06:58] LABS: HEMATOCRIT 32.8 % (35.0-45.0); PLATELET COUNT 294 Th/cmm (150-400); WHITE BLOOD COUNT 7.1 Th/cmm (4.8-10.8)
[2016-09-01 07:19] LABS: ALKALINE PHOSPHATASE 80 U/L (34-104); ANION GAP 7.4 (7.0-16.0); BILIRUBIN,TOTAL 0.5 mg/dL (0.3-1.0); BUN - UREA NITROGEN 20 mg/dL (7-25); CALCIUM SERUM 9.7 mg/dL (8.6-10.3); CARBON DIOXIDE 31.7 mEq/L (21.0-31.0); CHLORIDE 102 mEq/L (98-107); CREATININE - SERUM 0.8 mg/dL (0.6-1.2); GLUCOSE 171 mg/dL (70-105); POTASSIUM SERUM 4.1 mEq/L (3.5-5.1); SGOT 10 U/L (13-39); SGPT/ALT 11 U/L (7-52); SODIUM SERUM 137 mEq/L (136-145)
[2016-09-01] MEDS: INSULIN ASPART SLIDING SCALE 100 UNITS/ML UNIT SUBQ SCH ×3 (07:37→16:13)
[2016-09-01] MEDS: Levothyroxine 0.075 Mg Tab PO SCH (07:44)
[2016-09-01] MEDS: Pantoprazole 40 mg EC Tab PO SCH (08:30)
[2016-09-01] MEDS: Multivitamin w/ Minerals Tab PO SCH (08:30)
[2016-09-01] MEDS: Hydrocodone/APAP 5mg/325mg Tab PO PRN (08:31)
[2016-09-01] MEDS: Insulin Detemir 100 units/mL 10mL Vial SUBQ SCH (11:31)
[2016-09-01] MEDS ORDERED: Amoxicillin/Clavulanat 875/125 Tab PO SCH (17:00)
--- NOTE | 2016-09-02 02:40 | Consultation ---
The patient was seen, chart reviewed, discussed with staff. HISTORY OF PRESENT ILLNESS: The patient is a 71-year-old female with a history of mental illness, known to myself from prior treatment, sent from her senior living facility, had a knee surgery, went back. Then she returns now in the hospital for an infection treatment. The patient has been cooperative, taking her medications, said she is feeling somewhat anxious and stressed out, but she has been cooperative, taking medications, has not been agitated or aggressive. The patient said she rarely hears voices. PAST PSYCHIATRIC HISTORY: Prior hospitalization, history of schizoaffective disorder. PAST MEDICAL HISTORY: As per H and P, as per Dr. Hauser. PSYCHOSOCIAL HISTORY: The patient resides at [facility] and she requires complete care. MENTAL STATUS EXAMINATION: The patient is cooperative, makes fair eye contact. Speech is monotonous. Affect somewhat constricted. Rare auditory hallucinations. No suicidal thoughts or homicidal thoughts. She is oriented to time, place and person. ASSESSMENT: Schizoaffective disorder. PLAN: We will continue supportive measures, continue current medication measures. The patient is receiving Zoloft 25 mg p.o. at bedtime and risperidone 1 mg p.o. at bedtime. Questionable diagnosis of major depression versus schizoaffective disorder. Use Ativan 0.5 mg q.6h. p.r.n. anxiety. We will follow the patient while in the hospital. Thank you for the consultation. [facility]# [id number]
--- NOTE | 2016-09-02 03:09 | Discharge Summary ---
CHIEF COMPLAINT: Right knee pain and swelling. FINAL DIAGNOSES: Right knee cellulitis, recent patellar open reduction and internal fixation, diabetes, anemia, GERD, hypothyroidism, hypercholesterolemia, hypertension and schizoaffective disorder. HISTORY OF PRESENT ILLNESS: This is a 71-year-old Icelandic female with diabetes, GERD, hypothyroidism and schizoaffective disorder with recent right knee surgery. Apparently, the patient was noted to have redness and pain at that site. In spite of being on antibiotics the patient was referred back for further management. PHYSICAL EXAMINATION: VITAL SIGNS: Blood pressure 118/64, respirations 18, pulse 80 and temperature 96. GENERAL: Elderly female appears her stated age. NECK: Supple. No mass. LUNGS: Equal breath sounds. HEART: Regular rate and rhythm without appreciable murmur. ABDOMEN: Soft, nontender. EXTREMITIES: Positive jonny at the right knee, decreased erythema, positive pulses. HOSPITAL COURSE: The patient was admitted to medical floor, continued on IV antibiotic, pain medications. The patient was referred to Dr. La, who suggested immobilizer in the right knee 5-6 weeks as well as wound care. Continue on antibiotic. The patient was also seen by Dr. Salamanca. The patient cleared for discharge. CONDITION ON DISCHARGE: Fair. DISCHARGE INSTRUCTIONS: The patient is to continue current medical regimen. Instruction ____ nursing staff ____. JOB# [id number]
[2016-09-02 11:18] LABS: FOLIC ACID >20.0 ng/mL (>3.0)
== END 2016-09-01 17:25 | DRG 863 ==
LOC: ER 18:27 → MSI 21:50
PROVIDERS: ADMIT Internal Medicine; ATTEND Internal Medicine
DX: T81.4XXA Infection following a procedure, initial encounter (principal); E11.65 Type 2 diabetes mellitus with hyperglycemia; G20 Parkinson's disease; M00.9 Pyogenic arthritis, unspecified; L03.115 Cellulitis of right lower limb; F25.9 Schizoaffective disorder, unspecified; D64.9 Anemia, unspecified; E03.9 Hypothyroidism, unspecified; I10 Essential (primary) hypertension; K21.9 Gastro-esophageal reflux disease without esophagitis; E78.5 Hyperlipidemia, unspecified; E87.6 Hypokalemia; F17.210 Nicotine dependence, cigarettes, uncomplicated; E78.00 Pure hypercholesterolemia, unspecified; Y83.8 Other surgical procedures as the cause of abnormal reaction of the patient, or of later complication, without mention of misadventure at the time of the procedure; Y92.89 Other specified places as the place of occurrence of the external cause; Z91.14 Patient's other noncompliance with medication regimen
CPT/HCPCS: 36415-UA; 73562-TC-RT; 80048-TC; 80053-TC; 82010-TC; 82140-TC; 82550-TC; 82607-90; 82746-90; 82948-90; 83605; 83735-TC; 83880-TC; 84484-TC; 85025-TC; 85610-TC; 85652-TC; 93005; 94760; J1815; J1956; J2543; J3370; J7030; J7040; X3904; Z7610

== ENCOUNTER 2017-03-17 23:50 | Inpatient (IN) | payer MEDICARE, MEDICAID ==
--- NOTE | 2017-03-18 00:27 | ED Physician Chart ---
Chief Complaint/HPI - Patient Information Date Seen:: 03/18/17 Time Seen:: 00:15 Chief Complaint:: hypoxia History of Present Illness:: patient had a pulse ox of 78% tonight. She denies cough, SOB, chest pain. Allergies:: Allergies Allergy/AdvReac Type Severity Reaction Status Date / Time No Known Allergies Allergy Verified 08/21/16 19:40 Vitals:: Vital Signs - 8 hr 03/17/17 23:50 Temp 98.0 F HR 73 RR 22 BP 102/62 O2 Sat % 95 Historian:: Patient Review:: Nurse's Note Reviewed Review of Systems - Review of Systems General/Constitutional: No fever Skin: No skin lesions Head: No headache Eyes: No loss of vision ENT: No earache Neck: Neck pain, No neck pain Cardio Vascular: No chest pain Pulmonary: No SOB, Other (hypoxia) GI: No nausea, No vomiting G/U: No dysuria Endocrine: No polyuria, No polydipsia Psychiatric: Prior psych history Hematopoietic: No bruising Allergic/Immuno: No urticaria Neurological: No syncope Past Medical History - Past Medical History Past Medical History: HTN, DM, Dyslipidemia Family History: None Social History: Smoker, Care Facility Surgical History: other (dental extractions) Psychiatricy History: Other (anxiety; schizoaffective; depression) Family Medical History - Family Member Mother History Unknown: Yes Ethnicity: Unknown Living Status: Unknown Hx Family Cancer: No Hx Family Coronary Artery Disease: No Hx Family Congestive Heart Failure: No Hx Family Hypertension: No Hx Family Stroke: Yes Hx Family Diabetes: Yes Hx Family Seizures: No Hx Family Dementia: No Hx Family AIDS: No Hx Family HIV: No Hx Family COPD: No Hx Family Hepatitis: No Hx Family Psychiatric Problems: No Hx Family Tuberculosis: No Physical Exam - Physical Examination General/Constitutional: Well-developed, well-nourished, Alert, No distress Head: Atraumatic Eyes: Lids, conjuctiva normal, PERRL Skin: Nl inspection, No rash, No lymphadenopathy ENMT: External ears, nose nl, Lips, teeth, gums nl Other ENMT comments:: edentulous Neck: No nuchal rigidity Respiratory: Nl effort/Exclusion, Clear to Auscultation Cardio Vascular: RRR GI: No tenderness/rebounding/guarding Extremities: Normal digits & nails Neuro/Psych: No focal deficits Labs/Radiology/EKG Results - Lab Results Results: Laboratory Results - last 24 hr 03/18/17 03/18/17 00:40 00:40 WBC 8.4 RBC 3.98 Hgb 12.5 Hct 37.7 D MCV 94.6 MCH 31.4 H MCHC Differential 33.2 RDW 15.1 Plt Count 183 D MPV 9.5 Neutrophils % 74.4 Lymphocytes % 15.3 L Monocytes % 5.7 Eosinophils % 3.7 Basophils % 0.9 Sodium 134 L Potassium 5.1 Chloride 104 Carbon Dioxide 27.5 Anion Gap 7.6 BUN 53 H Creatinine 1.0 Est GFR ( Amer) TNP Est GFR (Non-Af Amer) TNP BUN/Creatinine Ratio 53.0 Glucose 262 H Calcium 8.9 Comments:: CXR negative - EKG Interpretations Rate & Rhythm: NSR [place]: normal Intervals: T wave inversions Assessment - Assessment General Assessment: at 0315 resting comfortably (apparently sleeping). Talked to Dr. Hendricks who said call Dr. Leung who accepted the patient. ED Septic Shock - . Is Septic Shock (SBP<90, OR Lactate>4 mmol\L) present?: No - <6hrs of presentation: Vital Signs: Vital Signs - 8 hr 03/17/17 23:50 Temp 98.0 F HR 73 RR 22 BP 102/62 O2 Sat % 95 Reassessment (Disposition) - Reassessment Reassessment Condition:: Improved - Diagnosis Diagnosis:: exacerbation COPD; dehydration; elevated troponin - Patient Disposition Admitted to:: Telemetry Spoke to:: Gael Leung Admitting Medical Physician:: Gael Leung Condition at Disposition:: Stable, Improved
[2017-03-18 00:48] LABS: % BASOPHILS 0.9 % (0.0-2.0); % EOSINOPHILS 3.7 % (0.0-5.0); % LYMPHOCYTES 15.3 % (20.0-50.0); % MONOCYTES 5.7 % (2.0-10.0); % NEUTROPHILS 74.4 % (40.0-80.0); HEMOGLOBIN 12.5 gm/dL (11.7-16.1); MEAN CELL VOLUME 94.6 fl (81-100); MEAN CORPUSCULAR HEMOGLOBIN 31.4 pg (27.0-31.0); MEAN CORPUSCULAR HGB CONC 33.2 pg (28.0-36.0); MEAN PLATELET VOLUME 9.5 fl; NEUTROPHILE ABSOLUTE 6.2 Th/cmm (1.8-8.0); RED BLOOD COUNT 3.98 Mil/cmm (3.80-5.20); RED CELL DISTRIBUTION WIDTH 15.1 % (11.5-20.0); WHITE BLOOD COUNT 8.4 Th/cmm (4.8-10.8)
[2017-03-18 00:52] LABS: HEMATOCRIT 37.7 % (35.0-45.0); PLATELET COUNT 183 Th/cmm (150-400)
[2017-03-18 01:02] LABS: ANION GAP 7.6 (7.0-16.0); BUN - UREA NITROGEN 53 mg/dL (7-25); CALCIUM SERUM 8.9 mg/dL (8.6-10.3); CARBON DIOXIDE 27.5 mEq/L (21.0-31.0); CHLORIDE 104 mEq/L (98-107); GLUCOSE 262 mg/dL (70-105); POTASSIUM SERUM 5.1 mEq/L (3.5-5.1); SODIUM SERUM 134 mEq/L (136-145)
[2017-03-18 03:11] LABS: TROP I 0.07 ng/mL (0.01-0.05)
[2017-03-18] MEDS ORDERED: Aspirin 81mg Chewable Tab ONE (03:19)
[2017-03-18] MEDS ORDERED: Sodium Chloride 0.9% 1,000 ML IV ONE (03:21)
[2017-03-18] MEDS ORDERED: Ipratropium Neb 0.5 mg/2.5 mL UD HHN ONE ×2 (04:19→04:30)
[2017-03-18] MEDS ORDERED: Albuterol Nebulizer 2.5mg/3mL HHN ONE ×2 (04:19→04:29)
[2017-03-18] MEDS ORDERED: Albuterol/Ipratropium Neb 3 ML AERS HHN ONE (04:58)
[2017-03-18] MEDS ORDERED: Aspirin 81mg Chewable Tab PO STA (04:59)
[2017-03-18 07:53] LABS: BE(B) 3.7 mEq/L (-3.0-3.0); HCO3 26.9 mEq/L (20.0-26.0); pH 7.34 (7.35-7.45)
[2017-03-18 07:54] LABS: ABG SOURCE Arterial; ALLEN TEST YES; FIO2 21
--- NOTE | 2017-03-18 08:24 | Diagnostic Imaging Report ---
Exam: Portable summation of chest HISTORY: Hypoxia Findings: Portable upright examination of chest at 0242 hours reviewed no prior studies available for comparison. The study demonstrates cardiomegaly. The aortic arch calcified. Bony thorax intact. The costophrenic angles are clear. There is a question of irregularity of the right the sixth rib clinical correlation recommended. There is evidence of mild congestion. Mild left basilar interstitial infiltrate cannot be excluded. IMPRESSION: 1. Cardiomegaly, mild congestion clinical correlation follow-up examination recommended.
[2017-03-18] MEDS ORDERED: Albuterol Nebulizer 2.5mg/3mL HHN STA (09:20)
[2017-03-18] MEDS ORDERED: Ipratropium Neb 0.5 mg/2.5 mL UD HHN PRN (09:20)
[2017-03-18] MEDS ORDERED: INSULIN HUMAN REGULAR 100 UNITS/ML UNIT SUBQ ONE (09:20)
[2017-03-18] MEDS ORDERED: Acetaminophen 500 MG TAB PO PRN (09:32)
[2017-03-18 10:16] VITALS: BP 110/66
[2017-03-18] MEDS ORDERED: INSULIN HUMAN REGULAR 100 UNITS/ML UNIT SUBQ SCH (11:30)
[2017-03-18] MEDS ORDERED: INSULIN ASPART SLIDING SCALE 100 UNITS/ML UNIT SUBQ SCH ×2 (11:30→16:30)
[2017-03-18] MEDS ORDERED: Pneumococcal Vaccine 0.5 mL Vial IM ONE (11:32)
[2017-03-18] MEDS: Albuterol/Ipratropium Neb 3 ML AERS HHN SCH ×2 (13:26→18:32)
[2017-03-18] MEDS ORDERED: VTE Chemical Prophylaxis Screen/Admission MC PRN (15:15)
[2017-03-19] MEDS ORDERED: Polyvinyl Alcohol Ophth Soln 15 mL Bottle EACH EYE PRN (00:08)
[2017-03-19] MEDS ORDERED: Magnesium Hydroxide (MOM) 30 mL UDC PO PRN (00:08)
[2017-03-19] MEDS ORDERED: Non-Formulary Item 1 EA (Melatonin [Melatonin] 6 MG) PO PRN (00:08)
[2017-03-19] MEDS ORDERED: Albuterol Nebulizer 2.5mg/3mL HHN PRN (00:08)
[2017-03-19] MEDS ORDERED: Ipratropium Neb 0.5 mg/2.5 mL UD HHN PRN (00:08)
[2017-03-19] MEDS ORDERED: Maalox 30 mL Cup PO PRN (00:08)
[2017-03-19] MEDS: Albuterol/Ipratropium Neb 3 ML AERS HHN SCH ×4 (00:24→19:37)
[2017-03-19] MEDS ORDERED: GLUCAGON HCl 1 MG KIT IM PRN (00:30)
--- NOTE | 2017-03-19 03:45 | History & Physical ---
ADMIT DATE: 03/18/2017 HISTORY OF PRESENT ILLNESS: The patient is seen by me earlier. She is a resident of [facility]. She has history of smoking. She says that she has been smoking for the last 7 years, but she smokes only 6 cigarettes per day. She also has history of hypertension, diabetes, dyslipidemia, hyperlipidemia, and psychosis, and probably underlying chronic obstructive pulmonary disease. She was sent to the ER secondary to low O2 sats at the facility and in the ER, her O2 saturations were only 78%. The patient denied any chest pain, no cough, no fevers; however, she states that she gets easily short of breath. In the ER, she was noticed to have a chest x-ray with congestion and cardiomegaly. Her O2 saturations on 2 L were 95%. The patient has a normal WBC count of 8.4. Her hemoglobin and hematocrit was normal, and I don't see any blood gases done. Her blood sugars are high at ____ and blood gases examination not done, and EKG shows T-wave inversions from V2-V5 and there was also suspicion of anterior infarct, undetermined age, ____ the troponins are negative, so the patient is admitted with the above complaints and findings. PAST MEDICAL HISTORY: As above. SURGICAL HISTORY: She is status post right knee surgery. ALLERGIES: No known drug allergies. SOCIAL HISTORY: She is . She denies drinking and no drugs, but she admits to smoking 6 cigarettes per day for 7 years. She used to work as a engineering secretary. FAMILY HISTORY: Her father of diabetes and mother of rectal cancer. REVIEW OF SYSTEMS: As above. PHYSICAL EXAMINATION: GENERAL: She is alert and awake, in mild distress. VITAL SIGNS: Temperature 97.5, respiratory rate is 18, heart rate is 82 and blood pressure is 115/68. LUNGS: Bibasilar rhonchi. HEART: Regular rate and rhythm. No murmur, no rub, no gallop. ABDOMEN: Soft, nontender. EXTREMITIES: Without clubbing, cyanosis or edema. LABORATORY DATA: As mentioned before showed WBC count is 8.4, hemoglobin is 12.5, hematocrit 37.7 and platelets are 183. Blood gases, pH of 7.34, pCO2 is 57, pO2 is 34 and bicarbonate is 26.9. Sodium 134, potassium 5.1, chloride 104, bicarb is 27.5 and BUN is 53, creatinine is 1.0. Blood sugars 262. Hemoglobin A1c is 8.6. Calcium is 8.9. Troponins are 0.07 and then the repeat one is 0.08 and the blood sugars again in the range of 231 and 225. CPKs are normal at 56 and 66. The chest x-ray as mentioned before shows cardiomegaly and congestion. ASSESSMENT AND PLAN: This lady who is a smoker and has multiple medical problems, was sent to the ER secondary to low O2 saturations. In the ER, she was started on 2 L nasal cannula oxygen and her oxygenation improved. The blood gases I am not sure whether they are precise, showed a very low pO2 of 34 on room air, but the saturations are 95%, so we will continue with the supplemental oxygen. We will continue with the breathing treatments. We will give her some antibiotics since I think she is suffering from chronic obstructive pulmonary disease exacerbation. We will check her blood sugars and will continue with the sliding scale and in regards to her EKG changes, we will check her CPKs and troponins x 3 and we will request a cardiology consultation and other than that, we will continue with antipsych medications. We will monitor her blood pressure and blood sugars and watch her closely. JOB# [id number]
[2017-03-19] MEDS: INSULIN ASPART SLIDING SCALE 100 UNITS/ML UNIT SUBQ SCH ×4 (06:30→20:41)
[2017-03-19] MEDS: Levothyroxine 0.075 Mg Tab PO SCH (06:31)
[2017-03-19] MEDS: Multivitamin w/ Minerals Tab PO SCH (08:59)
[2017-03-19] MEDS: Insulin Detemir 100 units/mL 10mL Vial SUBQ SCH (09:07)
[2017-03-19 10:57] LABS: ABG SOURCE Arterial; ALLEN TEST Positive; BE(B) 5.3 mEq/L (-3.0-3.0); FIO2 28; HCO3 28.9 mEq/L (20.0-26.0); pH 7.39 (7.35-7.45)
[2017-03-19] MEDS: Atorvastatin Calcium 10 MG TAB PO SCH (20:41)
--- NOTE | 2017-03-20 00:08 | Admit Criteria Form ---
Admit Criteria Forms - Admit Criteria Diagnosis: COPD Clinical Indications for Admission to Inpatient Care ([place]/ check or initial the applicable condition/criteria) Admission is indicated for ANY ONE of the following (1)(2)(3): [X ]I. Acute exacerbation by high-risk comorbidity(e.g., pneumonia, dysrhythmia, heart failure, pleural effusion, pneumothorax) or severe underlying COPD (eg, baseline FEV1 less than 50% predicted) [ ]II. Inpatient admission required[A] rather than observation care (see Chronic Obstructive Pulmonary Disease: Observation Care) because of ANY ONE of the following: [ ]a) New or pre-existing signs or symptoms of COPD (eg, dyspnea or Tachypnea at rest or with minimal activity) that persist despite outpatient and observation care treatment [ ]b) New-onset hypoxemia (room air SaO2 less than 90%, PO2 less than 60 mm Hg (8.0 kPa)) that persists despite outpatient and observation care treatment [ ]c) Worsening of pre-existing hypoxemia (eg, new or increased requirement for supplemental oxygen to maintain oxygenation at baseline level) that persists despite outpatient and observation care treatment, with oxygen treatment needs performable only in acute inpatient setting [ ]d) Hypercarbia (PCO2 greater than 40 mm Hg (5.3 kPa))-induced respiratory acidosis (pH less than 7.35) that persists despite outpatient and observation care treatment [ ]e) Supplemental oxygen or respiratory treatments for over 24 hours that are performable only in acute inpatient setting [ ]f) Chest tube placement with active evacuation (e.g., suction, drainage) (6) [ ]g) Other condition, treatment or monitoring requiring inpatient admission [ ]III. Planned invasive surgical or diagnostic procedures requiring acute- care hospitalization [ ]IV. Acute respiratory failure (e.g., uncompensated hypercarbia, severe hypoxemia) [ ]V. Severe comorbid condition (e.g., severe steroid myopathy, acute vertebral fracture) that has acutely worsened pulmonary function [ ]. Altered mental status that is severe or persistent Extended stay beyond goal length of stay may be needed for (29)(30)(31)(32)(33) : [ ]a ) Respiratory Failure. [ ]b) Severe or persisting hypoxemia or hypercarbia [ ]c) Severe or persistent dyspnea [ ]d) Clinically significant Comorbidities (e.g. chronic heart failure, atrial fibrillation with rapid response, pneumonia)(36) [ ]e) Malnutrition (33) The original [facility] content created by [facility] has been revised. The portions of the content which have been revised are identified through the use of italic text or in bold, and [facility] has neither reviewed nor approved the modified material. All other unmodified content is copyright [facility]. Please see references footnoted in the original [facility] edition 2017 Admit Criteria Met?: Yes
[2017-03-20] MEDS: Albuterol/Ipratropium Neb 3 ML AERS HHN SCH ×4 (00:53→19:01)
[2017-03-20 05:23] LABS: % BASOPHILS 0.4 % (0.0-2.0); % EOSINOPHILS 5.4 % (0.0-5.0); % LYMPHOCYTES 25.1 % (20.0-50.0); % MONOCYTES 7.6 % (2.0-10.0); % NEUTROPHILS 61.5 % (40.0-80.0); HEMATOCRIT 41.1 % (35.0-45.0); HEMOGLOBIN 13.3 gm/dL (11.7-16.1); MEAN CELL VOLUME 94.9 fl (81-100); MEAN CORPUSCULAR HEMOGLOBIN 30.8 pg (27.0-31.0); MEAN CORPUSCULAR HGB CONC 32.5 pg (28.0-36.0); NEUTROPHILE ABSOLUTE 3.8 Th/cmm (1.8-8.0); PLATELET COUNT 188 Th/cmm (150-400); RED BLOOD COUNT 4.33 Mil/cmm (3.80-5.20); RED CELL DISTRIBUTION WIDTH 15.6 % (11.5-20.0)
[2017-03-20 05:44] LABS: ANION GAP 5.6 (7.0-16.0); BUN - UREA NITROGEN 23 mg/dL (7-25); BUN/CREATININE RATIO 25.6; CALCIUM SERUM 8.9 mg/dL (8.6-10.3); CARBON DIOXIDE 28.6 mEq/L (21.0-31.0); CHLORIDE 107 mEq/L (98-107); CREATININE - SERUM 0.9 mg/dL (0.6-1.2); GLUCOSE 137 mg/dL (70-105); MAGNESIUM 2.1 mg/dL (1.9-2.7); PHOSPHOROUS 2.5 mg/dL (2.5-5.0); POTASSIUM SERUM 4.2 mEq/L (3.5-5.1); SODIUM SERUM 137 mEq/L (136-145)
[2017-03-20 05:59] LABS: WHITE BLOOD COUNT 6.1 Th/cmm (4.8-10.8)
[2017-03-20] MEDS: Levothyroxine 0.075 Mg Tab PO SCH (06:33)
--- NOTE | 2017-03-20 07:20 | Consultation ---
DATE OF CONSULTATION: 03/19/2017 HISTORY OF PRESENT ILLNESS: This 72-year-old female was seen and examined at the courtesy of Dr. Leung. The patient was admitted here with shortness of breath, was found to have some hypoxemia, pCO2 level was little bit elevated and pO2 level was low. She also has a history of multiple medical problems. She has history of hypertension, history of diabetes type 2, history of hyperlipidemia, hypothyroidism and depression. She also found to have cardiomegaly, mild CHF. EKG has shown V1 and V2, which may be possibly due to old septal injury also had T-wave inversion in the precordial leads from V1-V4 which may be consistent with myocardial ischemia also history as mentioned above, psychosis. Troponin level was found to be slightly high up to 0.07 and 0.08. There is no proper history available from the patient. Information obtained from the chart. LABORATORY DATA: Her blood gases done clear on 03/19/2017 showed pH of 7.39, pCO2 of 52, pO2 of 58. Troponin level as mentioned above was 0.06 and 0.07. Sodium was 134, potassium 5.1, chloride 104, CO2 of 27.5, BUN 53, creatinine 1.0. Glucose was . Hemoglobin A1c 8.6, WBC count was 8.4, hemoglobin 12.5, hematocrit 37.7, platelet count was 183. EKG finding has been mentioned above. Chest x-ray showed cardiomegaly and mild vascular congestion. SOCIAL HISTORY: The patient also has history of chronic smoking in the past. PHYSICAL EXAMINATION: VITAL SIGNS: Heart rate was 106, blood pressure was 126/80, temperature 98.1, respirations 18, O2 saturation 92. SKIN: Normal. HEAD: Normocephalic. EYES: Conjunctivae pink. There is no icterus in the eyes. Pupils reacting to light. NECK: There was no increased jugular venous distention, no thyromegaly, no lymphadenopathy. Carotids equal both sides. CHEST: Bilaterally symmetrical. Moved well with respiration. Respiratory movements equal both sides. Trachea is central. There is note to percussion. Breath sounds bilateral rales, few rhonchi. CARDIOVASCULAR SYSTEM: PMI not well localized and no positional thrill. No parasternal heave. S1 normal, S2 physiologic. There was no S3, no rub. ABDOMEN: Soft, no tenderness, no rigidity, no guarding and no organomegaly. Bowel sounds normal. EXTREMITIES: There is no calf tenderness. Peripheral pulses diminished. IMPRESSION: Shortness of breath, hypoxemia, hypertension, cardiomegaly and mild CHF, coronary artery disease, possible old NC, diabetes type 2, hyperlipidemia, hypothyroidism, depression, psychosis. PLAN: Suggest to continue present management including aspirin, some beta-siva, JERSON inhibitor, small dose of diuretic may be added. We will also get BNP morning and an echocardiogram to evaluate left ventricular function and valvular structure. We will follow with you as needed. JOB# [id number]
[2017-03-20] MEDS: INSULIN ASPART SLIDING SCALE 100 UNITS/ML UNIT SUBQ SCH ×4 (08:10→21:20)
[2017-03-20] MEDS: Multivitamin w/ Minerals Tab PO SCH (09:04)
[2017-03-20] MEDS: Insulin Detemir 100 units/mL 10mL Vial SUBQ SCH (09:26)
[2017-03-20] MEDS: Atorvastatin Calcium 10 MG TAB PO SCH (21:19)
[2017-03-21] MEDS: Albuterol/Ipratropium Neb 3 ML AERS HHN SCH ×4 (00:45→18:36)
[2017-03-21] MEDS: Levothyroxine 0.075 Mg Tab PO SCH (06:42)
[2017-03-21] MEDS: INSULIN ASPART SLIDING SCALE 100 UNITS/ML UNIT SUBQ SCH ×4 (06:42→20:48)
--- NOTE | 2017-03-21 08:53 | Diagnostic Imaging Report ---
Exam: Portable upright examination of chest. HISTORY: Chronic obstructive pulmonary disease. Findings: Portable upright examination of the chest at 0824 hours reviewed, no prior studies available for comparison. The study demonstrates cardiomegaly mild congestion. Costophrenic angles are clear. The aortic arch calcified. Bony thorax intact. Deformity of the right sixth rib appreciated, clinical correlation is recommended. IMPRESSION: Cardiomegaly, congestive heart failure. Follow-up examination is recommended
[2017-03-21] MEDS: Multivitamin w/ Minerals Tab PO SCH (09:24)
[2017-03-21] MEDS: Insulin Detemir 100 units/mL 10mL Vial SUBQ SCH (09:28)
--- NOTE | 2017-03-21 14:09 | Cardiology ---
03/19/[address] Leung. M-MODE ECHOCARDIOGRAM: Mitral valve, anterior leaflet of mitral valve shows normal excursion, EF velocity. Posterior leaflet of mitral valve shows normal excursion. Left ventricular posterior wall shows increased thickness, normal excursion. Interventricular septum shows increased thickness, normal excursion, hypertrophy of the left ventricle, ejection fraction 72%, left atrium normal. Aortic root shows normal dimension, normal excursion of aortic leaflets. CONCLUSION: Hypertrophy of the left ventricle, ejection fraction 72%. 2D ECHO: Long axis view showed normal sized left ventricle with hypertrophy of the left ventricle. Left atrium normal. Aortic root shows normal dimension, normal excursion of aortic leaflets. Short axis view of mitral valve normal. Short axis view of aortic valve normal. Apical four chamber view showed normal sized left ventricle with hypertrophy of the left ventricle. Left atrium normal. Right ventricular cavity, right atrium enlarged. CONCLUSION: Hypertrophy of the left ventricle, right atrial enlargement, right ventricle enlargement, ejection fraction 72%. Doppler study shows prominent A wave consistent with poor compliance of left ventricle, trace mitral regurgitation, [id number] tricuspid regurgitation, [id number] pulmonary regurgitation, right ventricular systolic pressure of 55 mmHg with moderate pulmonary hypertension. [facility]# [id number]
[2017-03-21] MEDS: Atorvastatin Calcium 10 MG TAB PO SCH (20:47)
[2017-03-22] MEDS: Albuterol/Ipratropium Neb 3 ML AERS HHN SCH ×2 (00:35→07:41)
[2017-03-22] MEDS: Levothyroxine 0.075 Mg Tab PO SCH (06:34)
[2017-03-22] MEDS: INSULIN ASPART SLIDING SCALE 100 UNITS/ML UNIT SUBQ SCH ×2 (06:35→12:16)
[2017-03-22] MEDS: Multivitamin w/ Minerals Tab PO SCH (08:18)
[2017-03-22] MEDS: Insulin Detemir 100 units/mL 10mL Vial SUBQ SCH (08:22)
[2017-03-22 08:58] LABS: pH 7.41 (7.35-7.45)
[2017-03-22 09:00] LABS: ABG SOURCE ARTERIAL; BE(B) 9.1 mEq/L (-3.0-3.0)
[2017-03-22 09:01] LABS: ALLEN TEST POSITIVE; FIO2 32
[2017-03-22 09:03] LABS: CRITICAL VALUES REPORTED BY JC
--- NOTE | 2017-03-22 09:24 | Diagnostic Imaging Report ---
CHEST X-RAY: AP view INDICATION: COPD COMPARISON: 03/21/2017 FINDINGS: Bilateral interstitial infiltrates are again noted. Cardiomegaly is noted. Note the patient is rotated. No pleural effusions. IMPRESSION: Persistent bilateral interstitial infiltrates which may reflect a mild degree of congestion. Cardiomegaly.
--- NOTE | 2017-03-22 21:52 | Discharge Summary ---
DATE OF DISCHARGE: 03/22/2017 HOSPITAL COURSE: This is a 72-year-old female. The patient is an [facility] resident, i.e. resident of [facility]. She has history of heavy smoking plus also has history of COPD, hypertension, diabetes, hyperlipidemia and psychosis. She was brought to the Emergency Room secondary to low O2 saturations of 78% at the facility. The patient was also complaining of shortness of breath, but no chest pain and no sputum. Her chest x-ray showed cardiomegaly. The patient's blood sugars were high. Troponins were negative. EKG showed T-wave inversion from V1-V5. The patient's BUN and creatinine was elevated, so the patient was admitted with acute respiratory distress, hypoxia, hypoxemia, probably COPD exacerbation, and rule out coronary artery syndrome with psychosis and dehydration. We started her on IV fluids. We will give her breathing treatments. We also started her on antibiotics. We checked her CPKs and troponins, which remained flat. Cardiology consultation was obtained, and repeat EKG did not show much change or much difference. The patient kept removing her monitor and the patient was also refusing to wear oxygen. She wanted to go back to the facility, so the patient was discharged back to the facility. Her chest x-ray did not show any acute disease. The patient was sent back to the facility to follow up with Dr. Hendricks. DISCHARGE DIAGNOSES: Acute respiratory distress, hypoxia, chronic obstructive pulmonary disease exacerbation, probably secondary to acute bronchitis, psychosis, coronary artery syndrome ruled out, atypical chest pain and dehydration, history of heavy smoking and probably underlying chronic obstructive pulmonary disease, hypertension, diabetes, hyperlipidemia, and psychosis. [facility]# [id number]
== END 2017-03-22 15:45 | disposition home or self-care (01) | DRG 189 ==
LOC: ER 23:50 → MSI 03-18 08:43 → TELE 03-18 08:46 → MSI 03-21 09:00
PROVIDERS: ADMIT Specialist; ATTEND Specialist
DX: J96.21 Acute and chronic respiratory failure with hypoxia (principal); I11.0 Hypertensive heart disease with heart failure; I50.32 Chronic diastolic (congestive) heart failure; E11.9 Type 2 diabetes mellitus without complications; J44.1 Chronic obstructive pulmonary disease with (acute) exacerbation; J44.0 Chronic obstructive pulmonary disease with (acute) lower respiratory infection; E86.0 Dehydration; J20.9 Acute bronchitis, unspecified; E78.5 Hyperlipidemia, unspecified; F29 Unspecified psychosis not due to a substance or known physiological condition; F17.210 Nicotine dependence, cigarettes, uncomplicated; E03.9 Hypothyroidism, unspecified; I25.10 Atherosclerotic heart disease of native coronary artery without angina pectoris; F32.9 Major depressive disorder, single episode, unspecified; F20.9 Schizophrenia, unspecified; F41.9 Anxiety disorder, unspecified; R07.89 Other chest pain; Z83.3 Family history of diabetes mellitus
CPT/HCPCS: 36415-UA; 36600-90; 71010-TC; 80048-TC; 82550-TC; 82803-TC; 82948-90; 83036-90; 83735-TC; 83880-TC; 84100-TC; 84484-TC; 85025-TC; 90779; 93005; 94640; 94760; J1644; J1815; J7030; J7613; Z7610